=== PATIENT | female | born 1960 | race Caucasian/White ===

== ENCOUNTER 2023-04-17 16:16 | Outpatient (OUT) | payer OTHER, SELFPAY ==
--- NOTE | 2023-04-17 | MM_ITS ---
Patient Name: DELVIS VALDEZ MR#: [id number] : 1960 Exam Date: 04/17/2023 Ordering Doctor: DR Fili Crisostomo . RADIOLOGY REPORT PROCEDURE: MM TOMOSYNTHESIS SCREENING BI COMPARISON: MG MAMM SCREEN 3D FINN CAD, 04/03/2021. MG MAMM SCREEN 3D FINN CAD, 04/09/2022. INDICATIONS: Finn Screening Mammogram Calculator Name NCI Breast Cancer Risk Assessment Tool 5 Year Breast Cancer Risk 1.60% Lifetime Breast Cancer Risk 6.40% Personal Breast Cancer No Personal Ovarian Cancer No Treatments Hysterectomy Family Cancers Mother with lung cancer at age ~60. LOCATION: [facility] BREAST COMPOSITION: Heterogeneously dense,which may obscure small masses. FINDINGS: DIAGNOSTIC CATEGORY 2--BENIGN FINDING. NO CHANGE FROM COMPARISON. Scattered benign-appearing lymph nodes are present. RIGHT BREAST: No significant suspicious finding. LEFT BREAST: No significant suspicious finding. Stable micro clip marker upper outer quadrant, anterior breast RECOMMENDATIONS: ROUTINE MAMMOGRAM AND CLINICAL EVALUATION IN 12 MONTHS. PLEASE NOTE: A NORMAL MAMMOGRAM DOES NOT EXCLUDE THE POSSIBILITY OF BREAST CANCER. A CLINICALLY SUSPICIOUS PALPABLE LUMP SHOULD BE BIOPSIED. Dictated by: Fitz Astudillo MD on 04/18/2023 at 07:26 Approved by: Fitz Astudillo MD on 04/18/2023 at 07:27
== END 2023-04-17 16:17 | disposition home or self-care (01) ==
LOC: MAMMO 16:16
PROVIDERS: PCP Family Medicine; Visit Provider Obstetrics & Gynecology
DX: Z12.31 Encounter for screening mammogram for malignant neoplasm of breast (principal); Z80.1 Family history of malignant neoplasm of trachea, bronchus and lung
CPT/HCPCS: 77063; 77067

== ENCOUNTER 2023-04-23 21:59 | Outpatient (REF) | payer OTHER, SELFPAY ==
--- OUTSIDE RECORDS SUMMARY | 2023-04-23 22:03 | XMS_ITS | CCD ---
Author Name Unknown Address [address] [place] [address] Organization [facility] Care Team Providers Care Chief Nurse Name Role Phone RACHEAL, RUGEN M Unavailable Unavailable CHARLES, DENNY M Unavailable Unavailable RACHEAL, RUGEN M Unavailable Unavailable MARY CELESTE Unavailable Unavailable Eleva, Erica Shipley Unavailable Unavailable SUE, JOCY Admitting Unavailable SUE, JOCY Attending Unavailable RACHEAL, DR TATE Primary Care Unavailable WEST, DR ANABELLA Harmon Consulting Unavailable SEUJOCY Consulting Unavailable TIMMIS, DR KING Admitting Unavailable TIMMIS, DR KING Attending Unavailable RACHEAL, DR TATE Primary Care Unavailable TIMMIS, DR KING Consulting Unavailable TIMMIS, DR KING Admitting Unavailable TIMMIS, DR KING Attending Unavailable RACHEAL, DR TATE Primary Care Unavailable TIMMIS, DR KING Consulting Unavailable WEST, DR ANABELLA Harmon Consulting Unavailable KARASIK, DR DIOP Admitting Unavailable KARASIK, DR DIOP Attending Unavailable RACHEAL, DR TATE Primary Care Unavailable KARASIK, DR DIOP Consulting Unavailable ZIEBER, DR ISMAEL Lanier Consulting Unavailable KARASIK, DR DIOP Admitting Unavailable KARASIK, DR DIOP Attending Unavailable RACHEAL, DR TATE Primary Care Unavailable KARASIK, DR DIOP Consulting Unavailable SUE, JOCY M Attending Unavailable Allergies Allergy Classification Reported Allergen(s) Allergy Type Date of Onset Reaction(s) Facility (1 source) Adhesive bandage; Translations: [Adhesive Bandage] Propensity to adverse reactions (disorder) [facility] Repository (1 source) Latex; Translations: [Latex] Propensity to adverse reactions (disorder) [facility] Rep[facility] (1 source) No Known Medication Allergies; Translations: [No Known Medication Allergies] Propensity to adverse reactions to drug (disorder) [facility] Repository (1 source) Misc-Drug Drug allergy (disorder) [facility] Repository Problems Active Problems Problem Classification Problem Date Documented Da te Episodic/Chronic Other screening for suspected conditions (not mental disorders or infectious disease) (4 sources) Encounter for screening mammogram for malignant neoplasm of breast; Translations: [ENC SCR MAMMO MALIG NEOPLASM BREAST] Onset: 04-09-2022 Episodic Residual codes; unclassified (1 source) Family history of malignant neoplasm of trachea, bronchus and lung; Translations: [FAM HX MALIG NEOPLSM TRACH BRON LNG] Onset: 04-12-2022 Episodic Thyroid disorders (9 sources) Nontoxic single thyroid nodule; Translations: [Hypothyroidism, unspecified] Onset: 08-08-2021 Chronic Unclassified (1 source) Periorbital cellulitis; Translations: [Periorbital cellulitis] Onset: 11-24-2016 Past or Other Problems Problem Classification Problem Date Documented Da te Episodic/Chronic Other gastrointestinal disorders (4 sources) Dysphagia, unspecified; Translations: [DYSPHAGIA UNSPECIFIED] Onset: 08-04-2021 Episodic Other skin disorders (1 source) Localized swelling, mass and lump, neck; Translations: [LOCALIZED SWELLING MASS AND LUMP NECK] Onset: 08-08-2021 Episodic Results Test Name Value Interpretation Reference Range Facility MG MAMM SCREEN 3D FINN CADon 04-09-2022 MG MAMM SCREEN 3D FINN CAD Patient: DELVIS VALDEZ Exam Date: 04/09/2022 : 1960 Gender:F Ordering : DR JADON VELA . Admission #: [id number] Family : Order #: [id number] CLICK HERE TO VIEW EXAM RADIOLOGY REPORT PROCEDURE: MAMMOGRAM SCREENING 3D BILATERAL CAD COMPARISON: MG MAMM SCREEN FINN W CAD, 11/24/2018. MG MAMM FINN SCRN W CAD DIG, 02/28/2016. MAMMO POST BIOPSY UNILATERAL LEFT, 06/19/2012. MG MAMM SCREEN 3D FINN CAD, 04/03/2021. INDICATIONS: Screening mammography Calculator Name NCI Breast Cancer Risk Assessment Tool 5 Year Breast Cancer Risk 1.60% Lifetime Breast Cancer Risk 6.60% Personal Breast Cancer No Personal Ovarian Cancer No Treatments Hysterectomy Family Cancers Mother with lung cancer at age 60. LOCATION: [facility] BREAST COMPOSITION: Heterogeneously dense,which may obscure small masses. FINDINGS: DIAGNOSTIC CATEGORY 2--BENIGN FINDING: RIGHT BREAST: No significant suspicious finding. No significant change has occurred. LEFT BREAST: No significant suspicious finding. Scattered benign-appearing lymph nodes are present within upper-outer quadrant. Stable biopsy marker clip. No significant change has occurred. RECOMMENDATIONS: ROUTINE MAMMOGRAM AND CLINICAL EVALUATION IN 12 MONTHS. PLEASE NOTE: A NORMAL MAMMOGRAM DOES NOT EXCLUDE THE POSSIBILITY OF BREAST CANCER. A CLINICALLY SUSPICIOUS PALPABLE LUMP SHOULD BE BIOPSIED. Dictated by: Ismael Durbin M.D. on 04/11/2022 at 08:03 Approved by: Ismael Durbin M.D. on 04/11/2022 at 08:[address] [facility] US THYROIDon 04-04-2022 US THYROID EXAMINATION: US THYR OID HISTORY: Non-toxic uninodular goiter COMPARISON: 08/04/2021 TECHNIQUE: Sonographic images of the thyroid gland were obtained. FINDINGS: The right thyroid lobe is atrophic and heterogeneous measuring 3.7 x 0.6 x 0.8 cm. No focal nodules The thyroid isthmus is atrophic measuring 0.01 mm. No focal nodule The left thyroid lobe is atrophic and heterogeneous measuring 3.3 x 0.7 x 0.6 cm. 2 focal nodules the largest measuring 0.8 x 0.4 x 0.2 cm, solid, isoechoic, wide, smooth margins, no calcifications. TR 3 IMPRESSION: Stable 8 mm left thyroid TR 3 nodule. No follow-up required Diffuse thyroid atrophy TI-RADS: The [employer] TI-RADS committee's white paper recommendations for thyroid lesions classified as TR3 (mildly suspicious) are listed below: > 1.5 cm. Follow-up ultrasound in 1, 3, and 5 years. > 2.5 cm. FNA. J. Am Donte Radiol 2017;14:587-595. Electronically authenticated by: ANABELLA MATHIS Date: 2022-04-04 16:[address] [facility] TSHon 09-21-2021 TSH 1.478 uIU/mL Normal 0.358-3.740 [facility] Comment on above: Performed By: #### T #### [facility] [address] [address] [address] 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 TECHNIQUE: Sonographic images of the thyroid gland were obtained. FINDINGS: The right thyroid lobe is normal in contour and homogeneous echotexture measuring 3.7 x 0.5 x 0.9 cm. No nodules over 5 mm. Thyroid isthmus measures 1.4 mm, homogeneous, no nodule. The left thyroid lobe is normal in contour and homogeneous echotexture measuring 3.3 x 0.8 x 0.8 cm. Single nodule. Nodule 1: Inferior. 0.7 x 0.5 x 0.3 cm. Solid, isoechoic, wide, smooth margins, no consultations. TR 3 IMPRESSION: Single 7 mm left thyroid nodule TI-RADS: The [employer] TI-RADS committee's white paper recommendations for thyroid lesions classified as TR3 (mildly suspicious) are listed below: > 1.5 cm. Follow-up ultrasound in 1, 3, and 5 years. > 2.5 cm. FNA. J. Am Donte Radiol 2017;14:587-595. Electronically authenticated by: ANABELLA MATHIS Date: 2021-08-06 07:05 Normal [facility] ED Provider Noteon 7 HIM IP Note OR Divinity Professor Normal [facility] Otolaryngology Consultationo n 10-29-2016 Otolaryngology Consultation Chief Complaint My right side of my face is swollen.History of Present Illness Patient is a very pleasant 56-year-old woman who has had swelling of her uvula on and off for the last month. Today she additionally has some hoarseness and little bit of discomfort on the left side of her throat. There's been no associated fever and chills. She does have some mild to moderate dysphagia that occurs when the uvula swells. There has been no shortness of breath or stridor.Review of Systems General Adult ROS Fatigue: No Appetite change: No Weakness: No Weight gain: No Weight Loss: No Cardiovascular Chest pain/pressure: No Edema: No Syncope: No EENMT Ear pain: No Nasal congestion: Yes Nasal discharge: No Nosebleeds: Yes Gastrointestinal Abdominal pain: No Constipation: No Diarrhea: No Heartburn: Yes Nausea: No Genitourinary Frequency: Yes Hematologic/Lymphatic Bleeding tendencies: No Bruising: No Musculoskeletal Joint pain: No Joint swelling: No Muscle aches: No Neurological Focal weakness: No Headache: No Numbness: No Psychiatric Anxiety: No Depression: No Suicidal Ideation: No Respiratory Cough: No Shortness_of_breath: No Snoring: No Wheezing: No Skin Itching: No Nail changes: No Rash: NoPhysical Exam Vitals & Measurements BP: 131/90 WT: 65.8 kg General: [Alert and oriented, well nourished, no acute distress]. Eye: [PERRL, EOMI, normal conjunctiva]. HENT: [Normocephalic. Ears: Analysis clear TMs healthy. Nose adequate airway mild bowing rightis or purulence. Oral cavity oropharynx of the mucous membranes good dental repair, post tonsillectomy healing throat. Inferior portion of uvula with pallorous edema though not significantly swollen at this time. Larynx: gag precludes good exam. Neck: [Supple, non-tender, no carotid bruits, no JVD, no lymphadenopathy]. Lungs: [Clear to auscultation and percussion, non-labored respiration]. Heart: [Normal rate, regular rhythm, no murmur, gallop or edema]. Skin: [Skin is warm, dry and pink, no rashes or lesions]. Neurologic: [Awake, alert, and oriented X3, CN II-XII intact]. Psychiatric: [Cooperative, appropriate mood and affect]. Additional Vitals BP Position/Location: Sitting, Left arm Peripheral Pulse Rate: 92 bpmAssessment/Plan 1. Uvular swelling Ordered: 91884 AMB Laryngoscopy diagnostic 23744 AMB Office OP Visit [facility] 2. Dysphasia Ordered: 97614 AMB Laryngoscopy diagnostic 32916 AMB Office OP Visit [facility] 3. Chronic GERD 4. Hoarse voice quality Flexible laryngoscopy: Her nose was anesthetized with topical anesthesia and the scope subsequently passed through her left nostril into her nasopharynx. There is no Nasal disease and her nasopharynx is normal. The tongue base reveals mild lingual tonsillar change slightly greater so on the left. The epiglottis and supraglottic larynx are normal. She has moderate to significant amount of cobblestoning of the posterior oropharyngeal vines. Orders are mobile there is some minimal edema and the trachea is clear. Plan: Giving her a reflux handout and placed her on some omeprazole. I'm concerned that the edematous change of the uvula could be related to the DARLYN inhibitor she is taking. I asked her to speak with Dr. Springer about possibly stopping this for a period of time a month or so to see whether this swelling stops. The swelling itself is reminiscent of angioedema in a mild form. Do not feel the reflux disease as any bearing on her uvular swelling.Problem List/Past Medical History Ongoing Hypertension Historical No qualifying dataProcedure/Surgical History Appendectomy, Hysterectomy, septoplasty, shoulder.Medications Home lisinopril 20 mg oral tablet, 20 mg, 1 tabs, Oral, Daily predniSONE 1 mg oral delayed release tablet, 1 mg, 1 tabs, Oral, Daily Inpatient No active inpatient medications Prescriptions No active PrescriptionsAllergies Adhesive Bandage (Rash) Latex (Rash) No Known Medication AllergiesSocial History Alcohol Never Substance Abuse Denies All Tobacco Never smokerFamily History Cancer: Mother. Heart attack: Father. Heart disease: Mother.Lab Results No qualifying data available.Electronically signed by N Mary fry MD 10/29/16 13:51 EDT Normal [facility] Encounters Encounter Date Encounter Type Care Provider Facility Start: 03-19-2023 End: 03-19-2023 ambulatory JOCY ROGERS Not Available Start: 04-23-2022 End: 04-23-[address] JADON VELA Facility:[facility] Start: 04-09-2022 End: 04-10-[address] JADON VELA Facility:[facility] Start: 04-04-2022 End: 04-05-[address] FERNANDO GRAHAM Facility:[facility] Start: 09-21-2021 End: 09-22-[address] FERNANDO GRAHAM Facility:[facility] Start: 08-04-2021 End: 08-05-2021 ambulatory JOCY ROGERS Facility:[facility] Start: 11-24-2016 End: 11-24-2016 Emergency department patient visit ERICA SPRINGER [facility] Start: 10-29-2016 End: 10-30-2016 Ambulatory MARY CELESTE Facility:[facility] Payers Date Payer Category Payer Unknown [id number] 1961 Unknown [id number] 1960 Unknown [id number] 2.16.84 [id number] 1960 Unknown [id number] 2.16.84 [id number] 1960 Unknown [id number] 2.16.84 [id number] 1960 Unknown [id number] 2.16.84 [id number] 1960 Unknown [id number] 2.16.84 [id number] 1960 Unknown [id number] 04-07-1799 Unknown Summary Purpose Family History No Family History Records FoundNo Family History Records FoundNo Family History Records FoundNo Family History Records FoundNo Family History Records Found Advance Directives No Advanced Directives Records FoundNo Advanced Directives Records FoundNo Advanced Directives Records FoundNo Advanced Directives Records FoundNo Advanced Directives Records Found Additional Source Comments INFORMATION SOURCE (unrecogn ized section and content) DATE CREATED AUTHOR 10/01/2017 [facility] DATE CREATED AUTHOR AUTHOR'S ORGANIZ ATION 10/01/2017 [facility] DATE CREATED AUTHOR AUTHOR'S ORGANIZ ATION 08/09/2021 [facility] dical Specialist DATE CREATED AUTHOR AUTHOR'S ORGANIZ ATION 04/24/2022 [facility] DATE CREATED AUTHOR AUTHOR'S ORGANIZ ATION 03/21/2023 [facility] dical Specialists EPIC FOR RECORDS PERTAINING TO PATIENTS WHO ARE OR HAVE BEEN ENROLLED IN A CHEMICAL DEPENDENCY/SUBSTANCEABUSE PROGRAM, SOME INFORMATION MAY BE OMITTED. This clinical summary was aggregated from multiple sources. Caution should be exercised in using it in the provision of clinical care. This summary normalizes information from multiple sources, and as a consequence, information in this document may materially change the coding, format and clinical context of patient data. In addition, data may be omitted in some cases. CLINICAL DECISIONS SHOULD BE BASED ON THE PRIMARY CLINICAL RECORDS. [facility] [employer] [facility]. provides no warranty or guarantee of the accuracy or completeness of information in this document.
[2023-04-28 18:08] LABS: Age Gdln ACOG Testing Note (.); HPV Aptima Negative (Negative); IGP, Aptima HPV, rfx 16/18,45 Note (.)
== END 2023-04-23 22:00 | disposition home or self-care (01) ==
LOC: LAB 21:59
PROVIDERS: PCP Family Medicine; Visit Provider Obstetrics & Gynecology
DX: Z01.419 Encounter for gynecological examination (general) (routine) without abnormal findings (principal)
CPT/HCPCS: 87624; G0145

== ENCOUNTER 2023-05-22 15:33 | Outpatient (OUT) | payer OTHER, SELFPAY ==
--- NOTE | 2023-05-22 15:40 | XR_ITS ---
The [address] [address] Patient Name: DELVIS VALDEZ MRN: [id number] date: 1960 Sex: F Assigned Patient Location: [facility] Current Patient Location: [facility] Accession/Order Number: [id number] Exam Date: 05/22/2023 15:50 Report Date: 05/22/2023 16:09 At the request of: KEN PEARSON Procedure: XR DEXA axial skeleton EXAM: XR DEXA axial skeleton HISTORY: Postmenopausal; Z78.0. COMPARISON: None. TECHNIQUE: Routine DEXA scan lumbar spine and bilateral hips. FINDINGS: L1-L4: BMD 1.330 g/sq cm and T score 1.3. Left femoral neck: BMD 1.007 g/sq cm and T score -0.2. Left hip total: BMD 1.075 g/sq cm and T score 0.5. Right femoral neck: BMD 1.030 g/sq cm and T score -0.1. Right hip total: BMD 1.104 g/sq cm and T score 0.8. XR/XR DEXA axial skeleton IMPRESSION: Normal bone mineral density. Electronically authenticated by: ERVIN ROJAS Date: 05/22/2023 16:09
== END 2023-05-22 15:34 | disposition home or self-care (01) ==
LOC: RAD 15:33
PROVIDERS: PCP Family Medicine; Visit Provider Obstetrics & Gynecology
DX: Z78.0 Asymptomatic menopausal state (principal)
CPT/HCPCS: 77080

== ENCOUNTER 2023-05-22 15:34 | Outpatient (OUT) | payer OTHER, SELFPAY ==
--- NOTE | 2023-05-22 15:41 | US_ITS ---
[address] [address] Patient Name: DELVIS VALDEZ MRN: [id number] date: 1960 Sex: F Assigned Patient Location: US Current Patient Location: Accession/Order Number: [id number] Exam Date: 05/22/2023 16:00 Report Date: 05/23/2023 06:50 At the request of: JOCY ROGERS Procedure: US thyroid EXAMINATION: US thyroid HISTORY: thyroid nodule E04.1 COMPARISON: Ultrasound thyroid 04/04/2022 FINDINGS: RIGHT LOBE: Homogeneous echotexture and contains a 4 mm TR 3 nodule and a small colloid cyst. Lobe size: 5.1 x 0.7 x 0.6 cm LEFT LOBE: Homogeneous echotexture and contains a 6 mm TR 4 nodule within inferior pole, and 2 5 mm TR 3 nodules within mid body/inferior pole. Lobe size: 3.1 x 0.6 x 0.9 cm. ISTHMUS: Normal size and echotexture. Thickness: 1 mm US/US thyroid IMPRESSION: 1. A few small nodules scattered within the homogeneous thyroid gland; not overtly suspicious. Consider follow-up imaging in 2 years. TR4 (moderately suspicious): If > 1.0 cm, follow-up ultrasound in 1, 2, 3, and 5 years. If > 1.5 cm, fine needle aspiration (FNA). TR3 (mildly suspicious): > 1.5 cm, follow-up ultrasound in 1, 3, and 5 years. > 2.5 cm, fine needle aspiration. Electronically authenticated by: TIFFANY WILHELM Date: 05/23/2023 06:50
--- OUTSIDE RECORDS SUMMARY | 2023-05-22 15:47 | XMS_ITS | CCD ---
Author Name Unknown Address [address] [place] [address] Organization [facility] Care Team Providers Care Steam Presser Name Role Phone RACHEAL, RUGEN M Unavailable Unavailable DENNY SOTO M Unavailable Unavailable RACHEAL, RUGEN M Unavailable Unavailable MARY CELESTE Unavailable Unavailable Racheal, Erica Shipley Unavailable Unavailable SUEOJCY Admitting Unavailable JOCY ROGERS Attending Unavailable RACHEAL, DR TATE Primary Care Unavailable DEL, DR ANABELLA Harmon Consulting Unavailable SUEJOCY SOLOMON Consulting Unavailable TIMMIS, DR KING Admitting Unavailable [...] Care Unavailable KARASIK, DR DIOP Consulting Unavailable MICHEL, KEN Attending Unavailable SUE, JOCY M Attending Unavailable Allergies Allergy Classification Reported Allergen(s) Allergy Type Date of Onset Reaction(s) Facility (1 source) Adhesive bandage; Translations: [Adhesive Bandage] Propensity to adverse reactions (disorder) [facility] Repository (1 source) Latex; Translations: [Latex] Propensity to adverse reactions (disorder) [facility] Repository (1 source) No Known Medication Allergies; Translations: [No Known Medication Allergies] Propensity to adverse reactions to drug (disorder) [facility] Repository (1 source) Misc-Drug Drug allergy (disorder) [facility] Repository Problems Active Problems Problem Classification [...] : DR JADON VELA . Admission #: [id number] Family : Order #: [id number] CLICK HERE TO VIEW EXAM RADIOLOGY REPORT [...] lung cancer at age 58. LOCATION: [facility] BREAST COMPOSITION: Heterogeneously dense,which may obscure [...] M.D. on 04/11/2022 at 08:[address] [facility] US THYROIDon 04-04-2022 US THYROID EXAMINATION: [...] follow-up required Diffuse thyroid atrophy TI-RADS: The [employer] TI-RADS committee's white paper recommendations for thyroid lesions classified as TR3 (mildly suspicious) are listed below: > 1.5 cm. Follow-up ultrasound in 1, 3, and 5 years. > 2.5 cm. FNA. J. Am Donte Radiol 2017;14:587-595. Electronically authenticated by: ANABELLA MATHIS Date: 2022-04-04 16:[address] [facility] TSHon 09-21-2021 TSH 1.478 uIU/mL Normal 0.358-3.740 [facility] Comment on above: Performed By: #### T #### [facility] [address] [place] [address] Dr. Kiara Miles TSHon 08-08-2021 TSH 5.390 uIU/mL High 0.400-4.500 [facility] io [employer] Comment on above: Performed By: #### T #### [facility] [address] [place] [id number] US THYROIDon 08-06-2021 US THYROID EXAMINATION: US [...] 7 mm left thyroid nodule TI-RADS: The [employer] TI-RADS committee's white paper recommendations for thyroid lesions classified as TR3 (mildly suspicious) are listed below: > 1.5 cm. Follow-up ultrasound in 1, 3, and 5 years. > 2.5 cm. FNA. J. Am Donte Radiol 2017;14:587-595. 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 Uvular swelling Ordered: 23778 AMB Laryngoscopy diagnostic 07291 AMB Office OP Visit [facility] 2. Dysphasia Ordered: 15939 AMB Laryngoscopy diagnostic 88869 AMB Office OP Visit [facility] 3. Chronic GERD 4. Hoarse [...] No qualifying data available.Electronically signed by N lisandra TOLBERT, Mary Perez 10/29/16 13:51 EDT [facility] Encounters Encounter Date Encounter Type Care Provider Facility Start: 04-23-2023 End: 04-23-2023 ambulatory KEN PEARSON Not Available Start: 03-19-2023 End: 03-19-2023 ambulatory JOCY ROGERS Not Available Start: 04-23-2022 End: 04-23-[address] JADON VELA Facility:[facility] Start: 04-09-2022 End: 04-10-[address] JADON VELA Facility:[facility] Start: 04-04-2022 End: 04-05-[address] FERNANDO GRAHAM Facility:[facility] Start: 09-21-2021 End: 09-22-[address] FERNANDO GRAHAM Facility:[facility] Start: 08-04-2021 End: 08-05-2021 ambulatory JOCY ROGERS Facility:[facility] Start: 11-24-2016 End: 11-24-2016 Emergency department patient visit ERICA SPRINGER [facility] Start: 10-29-2016 End: 10-30-2016 Ambulatory MARY CELESTE Facility:[facility] Payers Date Payer Category Payer Unknown [id number] 1961 Unknown [id number] 1960 Unknown [id number] 2.16.84 [id number] 1960 Unknown [id number] 2.16.84 [id number] 1960 Unknown [id number] 2.16.84 [id number] 1960 Unknown [id number] 2.16.84 [id number] 1960 Unknown [id number] 2.16.84 [id number] 1960 Unknown [id number] 2.16.84 [id number] 1960 Unknown [id number] 04-07-1799 Unknown Summary Purpose Family History No [...] section and content) DATE CREATED AUTHOR 10/01/2017 [facility] DATE CREATED AUTHOR AUTHOR'S ORGANIZ ATION 10/01/2017 [facility] DATE CREATED AUTHOR AUTHOR'S ORGANIZ ATION 08/09/2021 [facility] dical Specialist DATE CREATED AUTHOR AUTHOR'S ORGANIZ ATION 04/24/2022 [facility] DATE CREATED AUTHOR AUTHOR'S ORGANIZ ATION 04/24/2023 [facility] dical Specialists [facility] FOR RECORDS PERTAINING TO PATIENTS WHO ARE [...] BE BASED ON THE PRIMARY CLINICAL RECORDS. [facility] [employer] provides no warranty or guarantee of the accuracy or completeness of information in this document.
== END 2023-05-22 15:35 | disposition home or self-care (01) ==
LOC: US 15:34
PROVIDERS: PCP Family Medicine; Visit Provider Nurse Practitioner Family
DX: E04.1 Nontoxic single thyroid nodule (principal); N95.1 Menopausal and female climacteric states; Z13.820 Encounter for screening for osteoporosis; E89.41 Symptomatic postprocedural ovarian failure
CPT/HCPCS: 76536; 77080

== ENCOUNTER 2024-02-24 08:08 | Observation (INO) | payer OTHER, SELFPAY ==
[2024-02-24] VITALS (32 sets, daily range): BP systolic 122–187; BP diastolic 75–98; PULSE 69–91; TEMP 36.3–36.7; O2SAT 95–98; BMI 24.2; BMI 23.7
--- NOTE | 2024-02-24 08:16 | CT_ITS ---
The [address] [address] Patient Name: DELVIS VALDEZ MRN: [id number] date: 1960 Sex: F Assigned Patient Location: ED.MAIN Current Patient Location: ER Accession/Order Number: [id number] Exam Date: 02/24/2024 08:22 Report Date: 02/24/2024 08:35 At the request of: JOSEPHNIE FOWLER Procedure: CT stroke head/brain wo con NONCONTRAST HEAD CT COMPARISON: None. CLINICAL HISTORY: [Numbness. TECHNIQUE: Routine noncontrast images of the brain obtained. CT examination of the head without IV contrast. Dose reduction techniques were achieved by using: automated exposure control and/or adjustment of mA and /or kV according to patient size and/or use of iterative reconstruction technique. FINDINGS: Paranasal sinuses and mastoid air cells are clear. Intraorbital contents are unremarkable. No acute bony abnormality. Intracranially, there is no evidence of hemorrhage, mass effect, or midline shift. Ventricles and cisternal spaces are age appropriate. CT/CT stroke head/brain wo con IMPRESSION: No acute intracranial abnormality. Electronically authenticated by: SANDIP GARRETT Date: 02/24/2024 08:35
--- NOTE | 2024-02-24 08:24 | PC.NURSE ---
pt to CT via wheelchair at this time.
--- OUTSIDE RECORDS SUMMARY | 2024-02-24 08:29 | XMS_ITS | CCD ---
Author Organization [facility] Care Team Providers Care Radio Board Operator Name Role Phone RACHEAL, RUGEN M Unavailable Unavailable CHARLES, DENNY M Unavailable Unavailable RACHEAL, RUGEN M Unavailable Unavailable MARY CELESTE Unavailable Unavailable [place], Erica Shipley Unavailable Unavailable SUE, JOCY Admitting Unavailable SUE, JOCY Attending Unavailable RACHEAL, DR TATE Primary Care Unavailable WEST, DR ANABELLA Harmon Consulting Unavailable SUEJOCY Consulting Unavailable TIMMIS, DR KING Admitting Unavailable [...] DIOP Consulting Unavailable MICHEL, KEN Attending Unavailable TIMMIS, FERNANDO H Attending Unavailable RACHEAL, RUGEN M Referring Unavailable SUE, JOCY M Attending Unavailable SUE, JOCY M Attending Unavailable Allergies Allergy Classification Reported Allergen(s) Allergy Type Date of Onset Reaction(s) Facility (1 source) Adhesive bandage; Translations: [Adhesive Bandage] Propensity to adverse reactions (disorder) [facility] Repository (1 source) Latex; Translations: [Latex] Propensity to adverse reactions (disorder) [facility] Repository (1 source) No Known Medication Allergies; Translations: [No Known Medication Allergies] Propensity to adverse reactions to drug (disorder) [facility] Repository (1 source) Misc-Drug Drug allergy (disorder) [facility] Repository Problems Active Problems Problem Classification Problem [...] : DR JADON VELA . Admission #: [id number] Family : Order #: [id number] CLICK HERE TO VIEW EXAM RADIOLOGY REPORT [...] lung cancer at age 58. LOCATION: [facility] BREAST COMPOSITION: Heterogeneously dense,which may obscure small [...] M.D. on 04/11/2022 at 08:08 Normal [facility] US THYROIDon 04-04-2022 US THYROID EXAMINATION: US [...] follow-up required Diffuse thyroid atrophy TI-RADS: The [employer] TI-RADS committee's white paper recommendations for thyroid lesions classified as TR3 (mildly suspicious) are listed below: > 1.5 cm. Follow-up ultrasound in 1, 3, and 5 years. > 2.5 cm. FNA. J. Am Donte Radiol 2017;14:587-595. Electronically authenticated by: ANABELLA MATHIS Date: 2022-04-04 16:[address] [facility] TSHon 09-21-2021 TSH 1.478 uIU/mL Normal 0.358-3.740 [facility] Comment on above: Performed By: #### T #### [facility] [address] [place] [address] Dr. Kiara Miles TSHon 08-08-2021 TSH 5.390 uIU/mL High 0.400-4.500 [facility] io Laminating Machine Feeder Comment on above: Performed By: #### T #### [facility] [address] [facility] [address] [place], [place] [id number] US THYROIDon 08-06-2021 US THYROID EXAMINATION: US [...] 7 mm left thyroid nodule TI-RADS: The [employer] TI-RADS committee's white paper recommendations for thyroid lesions classified as TR3 (mildly suspicious) are listed below: > 1.5 cm. Follow-up ultrasound in 1, 3, and 5 years. > 2.5 cm. FNA. J. Am Donte Radiol 2017;14:587-595. Electronically authenticated by: ANABELLA MATHIS Date: 2021-08-06 07:[address] [facility] ED Provider Noteon 7 HIM IP Note OR Imitation [employer] Normal [facility] Otolaryngology Consultationo n 10-29-2016 Otolaryngology Consultation Chief [...] Rate: 92 bpmAssessment/Plan 1. Uvular swelling Ordered: 98419 AMB Laryngoscopy diagnostic 74867 AMB Office OP Visit [facility] Clinic 2. Dysphasia Ordered: 46042 AMB Laryngoscopy diagnostic 22025 AMB Office OP Visit [facility] Clinic 3. Chronic GERD 4. Hoarse [...] data available.Electronically signed by N lisandra TOLBERT, aMry Perez 10/29/16 13:51 EDT Normal [facility] Encounters Encounter Date Encounter Type Care Provider Facility Start: 12-18-2023 End: 12-18-2023 ambulatory JOCY ROGERS Not Available Start: 06-04-2023 End: 06-04-2023 ambulatory FERNANDO GRAHAM Not Available Start: 04-23-2023 End: 04-23-2023 ambulatory KEN PEARSON Not Available Start: 03-19-2023 End: 03-19-2023 ambulatory JOCY ROGERS Not Available Start: 04-23-2022 End: 04-23-[address] JADON VELA Facility:[facility] Start: 04-09-2022 End: 04-10-[address] JADON VELA Facility:[facility] Start: 04-04-2022 End: 04-05-[address] FERNANDO GRAHAM Facility:[facility] Start: 09-21-2021 End: 09-22-[address] FERNANDO GRAHAM Facility:[facility] Start: 08-04-2021 End: 08-05-2021 ambulatory JOCY SUE Facility:[facility] Start: 11-24-2016 End: 11-24-2016 Emergency department patient visit ERICA SPRINGER [facility] Start: 10-29-2016 End: 10-30-2016 Ambulatory MARY CELESTE Facility:[facility] Payers Date Payer Category Payer Unknown [id number] 1961 Unknown [id number] 1960 Unknown [id number] 2.16.84 [id number] 1960 Unknown [id number] 2.16.84 [id number] 1960 Unknown [id number] 2.16.84 [id number] 1960 Unknown [id number] 2.16.84 [id number] 1960 Unknown [id number] 2.16.84 [id number] 1960 Unknown [id number] 2.16.84 [id number] 1960 Unknown [id number] 2.16.84 [id number] 1960 Unknown [id number] 2.16.84 [id number] 1960 Unknown [id number] 2.16.840 .[id number] 04-07-1799 Unknown Summary Purpose Family History No [...] section and content) DATE CREATED AUTHOR 10/01/2017 [facility] DATE CREATED AUTHOR AUTHOR'S ORGANIZ ATION 10/01/2017 [facility] DATE CREATED AUTHOR AUTHOR'S ORGANIZ ATION 08/09/2021 [facility] DATE CREATED AUTHOR AUTHOR'S ORGANIZ ATION 04/24/2022 [facility] DATE CREATED AUTHOR AUTHOR'S ORGANIZ ATION 12/21/2023 [facility] FOR RECORDS PERTAINING TO PATIENTS WHO ARE [...] BE BASED ON THE PRIMARY CLINICAL RECORDS. [facility] [employer] provides no warranty or guarantee of the accuracy or completeness of information in this document.
--- NOTE | 2024-02-24 08:35 | ECG_ITS ---
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
--- NOTE | 2024-02-24 08:44 | CT_ITS ---
The [address] [address] Patient Name: DELVIS VALDEZ MRN: [id number] date: 1960 Sex: F Assigned Patient Location: ER Current Patient Location: .[facility] Accession/Order Number: [id number] Exam Date: 02/24/2024 09:14 Report Date: 02/24/2024 10:16 At the request of: JOSEPHINE FOWLER Procedure: CT angio neck EXAM: CT angio neck, CT angio head HISTORY: facial numbness COMPARISON: CT head 02/24/2024. TECHNIQUE: Axial noncontrast CT imaging of the head was performed. Subsequent postcontrast CTA imaging of the head and neck was performed with coronal and sagittal reformats. Maximum intensity projection and 3-D reformats were performed on a separate workstation. NASCET criteria was utilized. This CT exam was performed using one or more of the following dose reduction techniques: Automated exposure control, adjustment of the MA and/or kV according to patient size, or use of iterative reconstruction technique. FINDINGS: Aortic arch: Imaged portion shows no evidence of aneurysm. No significant stenosis of the major origins of the major arch vessels. Right carotid system: No evidence of significant (50% or greater) stenosis or occlusion. Left carotid system: No evidence of significant (50% or greater) stenosis or occlusion. Vertebral arteries: Codominant. No evidence of significant (50% or greater) stenosis or occlusion. Anterior circulation: No evidence of aneurysm, significant stenosis, or occlusion. Hypoplastic right A1 anterior cerebral artery segment. Vertebrobasilar system: No evidence of aneurysm, significant stenosis, or occlusion. Venous sinuses: Grossly patent. Additional findings: Visualized portion of lungs are clear. CT/CT angio neck IMPRESSION: No significant stenosis, large vessel occlusion or aneurysm involving the neck or intracranial arterial vasculature. Electronically authenticated by: ZEHRA RICE Date: 02/24/2024 10:16
--- NOTE | 2024-02-24 08:44 | CT_ITS ---
The [address] [address] Patient Name: DELVIS VALDEZ MRN: [id number] date: 1960 Sex: F Assigned Patient Location: ER Current Patient Location: .[facility] Accession/Order Number: [id number] Exam Date: 02/24/2024 09:14 Report Date: 02/24/2024 10:16 At the request of: JOSEPHINE FOWLER Procedure: CT angio head EXAM: CT angio neck, CT angio head HISTORY: facial numbness COMPARISON: CT head 02/24/2024. TECHNIQUE: Axial noncontrast CT imaging of the head was performed. Subsequent postcontrast CTA imaging of the head and neck was performed with coronal and sagittal reformats. Maximum intensity projection and 3-D reformats were performed on a separate workstation. NASCET criteria was utilized. This CT exam was performed using one or more of the following dose reduction techniques: Automated exposure control, adjustment of the MA and/or kV according to patient size, or use of iterative reconstruction technique. FINDINGS: Aortic arch: Imaged portion shows no evidence of aneurysm. No significant stenosis of the major origins of the major arch vessels. Right carotid system: No evidence of significant (50% or greater) stenosis or occlusion. Left carotid system: No evidence of significant (50% or greater) stenosis or occlusion. Vertebral arteries: Codominant. No evidence of significant (50% or greater) stenosis or occlusion. Anterior circulation: No evidence of aneurysm, significant stenosis, or occlusion. Hypoplastic right A1 anterior cerebral artery segment. Vertebrobasilar system: No evidence of aneurysm, significant stenosis, or occlusion. Venous sinuses: Grossly patent. Additional findings: Visualized portion of lungs are clear. CT/CT angio head IMPRESSION: No significant stenosis, large vessel occlusion or aneurysm involving the neck or intracranial arterial vasculature. Electronically authenticated by: ZEHRA RICE Date: 02/24/2024 10:16
[2024-02-24 08:48] LABS: Basophils Percent Auto 0.6 % (0.2-2.0); Eosinophils Absolute Auto 0.1 10^3/uL (0.0-0.7); Eosinophils Percent Auto 1.5 % (0.9-7.0); Hematocrit 40.4 % (36.0-48.0); Hemoglobin 13.3 g/dL (12.0-16.0); Immature Granulocytes Abs Auto 0.01 10^3/uL (0.00-0.03); Immature Granulocytes Pct Auto 0.2 % (0.0-0.5); Lymphocytes Absolute Auto 1.6 10^3/uL (1.2-3.8); Lymphocytes Percent Auto 24.5 % (20.5-60.0); Mean Corpuscular HGB Conc 32.9 g/dL (29.9-35.2); Mean Corpuscular Hemoglobin 28.6 pg (26.7-34.0); Mean Corpuscular Volume 86.9 fL (81.0-99.0); Mean Platelet Volume 9.1 fL (9.5-13.5); Monocytes Absolute Auto 0.4 10^3/uL (0.3-0.8); Monocytes Percent Auto 6.2 % (1.7-12.0); Neutrophils Absolute Auto 4.4 10^3/uL (1.4-6.5); Platelet Count 223 10^3/uL (150-450); Red Blood Count 4.65 10^6/uL (4.20-5.40); White Blood Count 6.6 10^3/uL (4.0-11.0)
[2024-02-24 08:58] LABS: Anion Gap 14.6; BUN Creatinine Ratio 12.5; Calcium 9.1 mg/dL (8.5-10.1); Carbon Dioxide 27.4 mmol/L (21.0-32.0); Chloride 103 mmol/L (98-107); Estimated GFR (African America >60 (>=60 mL/min/1.73m^2); Estimated GFR (Non-African Ame >60 (>=60 mL/min/1.73m^2); Glucose 95 mg/dL (74-106); Sodium 141 mmol/L (136-145)
[2024-02-24 09:06] LABS: Partial Thromboplastin Time 27.1 sec (22.3-36.2); Prothrombin Time 9.8 sec (9.0-11.6)
[2024-02-24 09:11] LABS: INR <0.93
--- NOTE | 2024-02-24 09:17 | PC.NURSE ---
pt to CT via wheelchair at approx 0913. pt remains A&Ox4 with no neuro deficits noted. pt moving all extremities equally and denies worsening of L upper lip numbness. no slurred speech or drooling noted.
--- NOTE | 2024-02-24 09:47 | ED_ITS ---
HPI - Neuro Symptoms/Deficit General Chief Complaint: Neuro Symptoms/Deficit Stated Complaint: FACIAL NUMBNESS Time Seen by Provider: 02/24/24 08:16 Source: patient Mode of arrival: walk-in History of Present Illness HPI Narrative: 63-year-old female presents to the emergency department for numbness to her left upper lip area. It began about 645 this morning and has been continuous. She has no other symptoms. No weakness or numbness in the arms or legs and no numbness to her forehead or jaw area. She has never had a stroke before. Related Data Home Medications ?Medication ?Instructions ?Recorded ?Confirmed conjugated estrogens 0.9 mg tablet mg 02/24/24 (Premarin) levothyroxine 25 mcg tablet mcg 02/24/24 lisinopril 10 mg tablet mg 02/24/24 semaglutide (weight loss) 0.25 0.25 mg subcut QWEEK 02/24/24 02/24/24 mg/0.5 mL subcutaneous pen injector Allergies Allergy/AdvReac Type Severity Reaction Status Date / Time cephalexin Allergy Mild Rash Verified 02/24/24 08:21 Sulfa (Sulfonamide Allergy Mild Rash Verified 02/24/24 08:21 Antibiotics) adhesive AdvReac Mild Rash Verified 02/24/24 08:21 Review of Systems ROS Narrative A ten point review of systems is negative except as noted above. PFSH PFSH Social History Little interest or pleasure in doing things: not at all Feeling down, depressed, or hopeless: not at all Exam Narrative Exam Narrative: Nurses note and vital signs reviewed and patient is not hypoxic. General: The patient appears well and in no apparent distress. Patient is resting comfortably on cart. Skin: Warm, dry, no pallor noted. There is no rash noted. Head: Normocephalic, atraumatic Eye: Normal conjunctiva, no drainage Ears, Nose, Mouth, and Throat: oral mucosa is moist. Nares patent. No erythema or swelling to her face is noted Cardiovascular: Regular Rate and Rhythm Respiratory: Patient is in no distress, no accessory muscle use, lungs are clear to auscultation, no wheezing, rales or rhonchi Back: non-tender GI: Nontender Musculoskeletal: The patient has no evidence of calf tenderness, no pitting edema, symmetrical pulses noted bilaterally Neurological: A&O x4, normal speech; upper and lower extremity strength 5 out of 5 and symmetric. She has subjective numbness in the left upper lip region, none along the jaw area or the face. Otherwise cranial nerves II through XII are intact. Psychiatric: Cooperative Constitutional Vital Signs, click to edit/add: Last Vital Signs Temp 98.0 F 02/24/24 08:12 Pulse 76 02/24/24 09:50 Resp 19 02/24/24 09:50 BP 176/84 H 02/24/24 09:30 Pulse Ox 97 02/24/24 09:50 O2 Del Method Room Air 02/24/24 08:12 Course Vital Signs Vital signs: Vital Signs Temperature 98.0 F 02/24/24 08:12 Pulse Rate 89 02/24/24 08:12 Respiratory Rate 16 02/24/24 08:12 Blood Pressure 164/96 H 02/24/24 08:12 Pulse Oximetry 98 02/24/24 08:12 Oxygen Delivery Method Room Air 02/24/24 08:12 Temperature 98.0 F 02/24/24 08:12 Pulse Rate 76 02/24/24 09:50 Respiratory Rate 19 02/24/24 09:50 Blood Pressure 176/84 H 02/24/24 09:30 Pulse Oximetry 97 02/24/24 09:50 Oxygen Delivery Method Room Air 02/24/24 08:12 MDM - Neuro Symptoms/Deficit MDM Narrative Medical decision making narrative: CT, CTA of head and neck are negative. Case discussed with Dr. Gross who recommends MRI as either an inpatient or an outpatient. The patient and her fam sejal preferred to be admitted for this testing and this is going to be accomplished. I have spoken to Dr. Rouse and the patient is admitted. Differential Diagnosis Differential diagnosis: Likely other (Paresthesia, CVA, hemorrhagic stroke) Lab Data Attestation: I reviewed the patient's lab results. Labs: Lab Results 02/24/24 Range/Units 08:42 WBC 6.6 (4.0-11.0) 10^3/uL RBC 4.65 (4.20-5.40) 10^6/uL Hgb 13.3 (12.0-16.0) g/dL Hct 40.4 (36.0-48.0) % MCV 86.9 (81.0-99.0) fL MCH 28.6 (26.7-34.0) pg MCHC 32.9 (29.9-35.2) g/dL RDW 13.0 (11.0-15.0) % Plt Count 223 (150-450) 10^3/uL MPV 9.1 L (9.5-13.5) fL Neut % (Auto) 67.0 (43.0-75.0) % Lymph % (Auto) 24.5 (20.5-60.0) % [place] % (Auto) 6.2 (1.7-12.0) % Eos % (Auto) 1.5 (0.9-7.0) % Baso % (Auto) 0.6 (0.2-2.0) % Neut # (Auto) 4.4 (1.4-6.5) 10^3/uL Lymph # (Auto) 1.6 (1.2-3.8) 10^3/uL [place] # (Auto) 0.4 (0.3-0.8) 10^3/uL Eos # (Auto) 0.1 (0.0-0.7) 10^3/uL Baso # (Auto) 0.0 (0.0-0.1) 10^3/uL Abs Immat Gran (auto) 0.01 (0.00-0.03) 10^3/uL Imm/Tot Granulo (auto) 0.2 (0.0-0.5) % PT 9.8 (9.0-11.6) sec INR <0.93 APTT 27.1 (22.3-36.2) sec Sodium 141 (136-145) mmol/L Potassium 4.0 (3.5-5.1) mmol/L Chloride 103 (98-107) mmol/L Carbon Dioxide 27.4 (21.0-32.0) mmol/L Anion Gap 14.6 BUN 9.0 (7.0-18.0) mg/dL Creatinine 0.72 (0.55-1.02) mg/dL Est GFR ( Amer) >60 (>=60 mL/min/1.73m^2) Est GFR (Non-Af Amer) >60 (>=60 mL/min/1.73m^2) BUN/Creatinine Ratio 12.5 Glucose 95 (74-106) mg/dL Calcium 9.1 (8.5-10.1) mg/dL Imaging Data CT scan - head: Radiologist's impression: ITS Impressions Brain CT 02/24/24 08:16 IMPRESSION: No acute intracranial abnormality. Electronically authenticated by: SANDIP GARRETT Date: 02/24/2024 08:35 Head CTA 02/24/24 08:44 IMPRESSION: No significant stenosis, large vessel occlusion or aneurysm involving the neck or intracranial arterial vasculature. Electronically authenticated by: ZEHRA RICE Date: 02/24/2024 10:16 Neck CTA 02/24/24 08:44 IMPRESSION: No significant stenosis, large vessel occlusion or aneurysm involving the neck or intracranial arterial vasculature. Electronically authenticated by: ZEHRA RICE Date: 02/24/2024 10:16 ECG Data Attestation: I personally reviewed and interpreted this ECG as follows: (EKG on my interpretation shows normal sinus rhythm with rate of 77) Discharge Plan Discharge Chief Complaint: Neuro Symptoms/Deficit Clinical Impression: Facial numbness Patient Disposition: Admitted as Observation Time of Disposition Decision: 10:50 Condition: Good Prescriptions / Home Meds: No Action levothyroxine 25 mcg tablet Premarin 0.9 mg tablet lisinopril 10 mg tablet semaglutide (weight loss) 0.25 mg/0.5 mL pen injector 0.25 mg subcut QWEEK Print Language: Kiswahili Referrals: LEA SPRINGER [Primary Care Provider] - 1 week
--- NOTE | 2024-02-24 10:43 | CA_ITS ---
Patient Name: DELVIS VALDEZ MR#: [id number] : 1960 Exam Date: 02/24/2024 Ordering Doctor: Jacey Rouse . ECHOCARDIOGRAM REPORT PROCEDURE: CA ECHO DOPPLER COMPLETE INDICATIONS: lip numbness/weakness/cva COMPARISON: None. DESCRIPTION: COMPLETE ECHOCARDIOGRAM Real-time transthoracic echocardiography with 2D, M-mode, spectral and color flow Doppler performed. QUALITY: Technical quality was good. LEFT VENTRICLE: Normal chamber size. Proximal septal hypertrophy (sigmoid septum). LV EF: Normal left ventricular ejection fraction, (>55%). DIASTOLIC: Normal diastolic function. ATRIAL SEPTUM: LEFT ATRIUM: Normal chamber size. RIGHT ATRIUM: Normal chamber size. RIGHT VENTRICLE: Normal chamber size. Normal right ventricular systolic function. TRICUSPID VALVE: Normal mobility and thickness. No stenosis with trivial regurgitation. No evidence of pulmonary hypertension. RVSP 18 mmHg MITRAL VALVE: Normal mobility and thickness. No evidence of mitral valve stenosis. There is no mitral annular calcification. No mitral regurgitation. AORTIC VALVE: Normal trileaflet appearance. No visible sclerosis. Normal leaflet mobility. No evidence of aortic valve stenosis. Mild aortic regurgitation. AORTIC ROOT: Normal diameter and appearance. Ascending aorta is normal in size. PULMONIC VALVE: Normal thickness and mobility. No stenosis. No regurgitation. PERICARDIUM: No evidence of pericardial effusion. IVC: Collapses with inspirations. PLEURA: CONCLUSION: 1. Normal ventricular systolic function. LVEF is estimated at 55 to 60%. 2. Normal diastolic function. 3. Mild aortic valve regurgitation. 4. Normal right-sided pressures. 5. No pericardial effusion. Adult Echocardiography Procedure Report Left Ventricle LVEDD (3.7 - 5.6 cm): 3.76 cm LVESD (2.2 - 4.0 cm): 2.62 cm LVIVS thickness (0.6 - 1.2 cm): 1.35 cm LVPW thickness (0.5 - 1.0 cm): 1.01 cm e': 0.08 m/s E - e': 6.02 LVOT Max Gradient: 2.17 mm[Hg] LVOT Area (cm2): 0.74 m/s Peak Velocity (LVOT): 0.74 m/s Mean Velocity (LVOT): 0.49 m/s LVOT Diameter 2.31 cm Left Atrium LA Volume Index (2D A2C): 28.74 ml/m2 Left Atrium Systolic Dimension: 3.48 cm Mitral Valve MV E to A Ratio: 0.72 Mitral Valve A-Wave Peak Velocity: 0.69 m/s Mitral Valve E-Wave Peak Velocity: 0.49 m/s Right Ventricle Aorta AO Root Diam: 3.09 cm Ascending Ao Diam: 2.71 cm Aortic Valve AoV Area (Peak Morales): 3.30 cm2, 3.30 cm2 AoV Area (VTI): 3.06 cm2, 3.06 cm2 Peak Velocity(Antegrade Flow): 0.93 m/s Peak Gradient(Antegrade Flow): 3.49 mm[Hg] Mean Velocity(Antegrade Flow): 0.64 m/s Mean Gradient(Antegrade Flow): 1.89 mm[Hg] Velocity Time Integral: 21.11 cm Tricuspid Valve Peak Velocity (Regurgitant Flow): 1.96 m/s Pulmonic Valve Peak Velocity: 0.67 m/s Peak Gradient: 1.78 mm[Hg] Right Atrium Right Atrium Systolic Pressure: 37.33 ml, 37.33 ml Dictated by: Jevon Rangel M.D. on 02/24/2024 at 19:31 Approved by: Jevon Rangel M.D. on 02/24/2024 at 19:34
--- NOTE | 2024-02-24 10:48 | P.HP_ITS ---
HPI H&P: HPI History of Present Illness Chief complaint: FACIAL NUMBNESS Narrative: Patient is a 63 y.o female with past medical history of Hypertension, hypothyroidism, and post menopausal symptoms, who presented to the ER today after waking up this morning at 6:45am with numbness of the left upper lip. She notes some dry skin and occasionally get some dry patches of which she uses lotion for. She denies any numbness or tingling of the lower extremities or upper extremities, she denies any recent illnesses. She denies headache or confusion. She denies slurring of speech. She has never had a stroke or CVA before. She has been elevated blood pressure, and her PCP placed her on kait aglutide to see if weight loss would help improve this. 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 She denies trauma, or fever or chills. On admission exam she says she is seeing double, lasts for a few seconds and goes away. This just started after MRI and after she received ATivan. ER findings: CTA of the head and neck showed no acute findings or evidence of stenosis, I was able to get MRI which was also negative for acute stroke. CBC, CMP and magnesium all normal. BP has been 145/80's. Patient was admitted for further work up of her acute lip numbness. Opioid HPI Opioid Management Most Recent Pain and Opioid Data: Last Pain Scale 6 02/24/24 08:45 02/24/24 Last Pain Assessment 02/24/24 14:00 Last ED Pain Assessment 02/24/24 08:45 Last ORT Total Score 5 02/24/24 13:06 02/24/24 Last ORT Risk Category Moderate Risk 02/24/24 13:06 02/24/24 Review of Systems ROS Narrative ROS: a complete review of systems were reviewed with patient and are positive as below or listed in History of Chief Complaint. General: no fever, chills, night sweats Head: no headache, trauma, visual changes, nausea or vomiting Skin: itching and dry spots/sores Eyes: no blurriness of vision Ears: no reported hearing loss, vertigo, earache, or tinnitus Throat: no sore throat, hoarseness, swelling of neck, or tongue pain Heart: no chest pain Lungs: no shortness of breath or cough GI: no diarrhea or vomiting/nausea Urinary: no urinary urgency, frequency or pain Neuro: numbness or tingling of the left upper lip HEM: no bleeding issues or bruising ENDO: thyroid problems Psych: no anxiety or depression PFSH PFSH Medical History (Updated 02/24/24 @ 15:37 by Jacey Rouse DO) Post menopausal syndrome ?N95.1 - Menopausal and female climacteric states (ICD-10) Hypothyroidism, acquired ?E03.9 - Hypothyroidism, unspecified (ICD-10) Lipoma of back ?D17.1 - Benign lipomatous neoplasm of skin and subcutaneous tissue of trunk (ICD-10) HTN (hypertension) ?I10 - Essential (primary) hypertension (ICD-10) FH: [place] (myocardial infarction) ?Z82.49 - Family history of ischemic heart disease and other diseases of the circulatory system (ICD-10) FH: stroke ?Z82.3 - Family history of stroke (ICD-10) Uterine cancer ?C55 - Malignant neoplasm of uterus, part unspecified (ICD-10) Surgical History History of appendectomy ?Z90.49 - Acquired absence of other specified parts of digestive tract (ICD- 10) H/O hysterectomy with oophorectomy Social History Highest level of school completed/degree received: Associate degree: academic program Little interest or pleasure in doing things: not at all Feeling down, depressed, or hopeless: not at all Meds Home Medications and Allergies Home Medications ?Medication ?Instructions ?Recorded ?Confirmed ?Type conjugated estrogens 0.9 mg tablet 0.9 mg PO .QD 02/24/24 02/24/24 History (Premarin) levothyroxine 25 mcg tablet 25 mcg PO .QD 02/24/24 02/24/24 History lisinopril 10 mg tablet 10 mg PO .QD 02/24/24 02/24/24 History semaglutide 1 mg/dose (4 mg/3 mL) 0.25 mg subcut QWEEK 02/24/24 02/24/24 History subcutaneous pen injector Allergies Allergy/AdvReac Type Severity Reaction Status Date / Time cephalexin Allergy Mild Rash Verified 02/24/24 08:21 Sulfa (Sulfonamide Allergy Mild Rash Verified 02/24/24 08:21 Antibiotics) adhesive AdvReac Mild Rash Verified 02/24/24 08:21 Exam Narrative Exam Narrative: General: Patient is alert, and oriented to person, place and time with normal affect, proper hygiene Skin: circular erythematous patches over arms and legs, maybe 4 total Head: atraumatic, acephalic Eyes: PERRLA, no nystagmus present, conjunctiva clear, no scleral icterus Ears: normal gross auditory acuity Neck: no masses palpated Heart: Normal rate and rhythm, no murmurs/rubs/gallops Lungs: no audible wheezes, crackles and normal breath sounds all lung abdul Abdomen: Normal audible bowel sounds, no distension, No palpable masses, no organomegaly, no rebound/guarding/ or rigidity Musculoskeletal: no swelling bilateral lower extremities Neuro: CN II-X grossly intact, normal sensation upper and lower extremities, no facial droop, normal 5/5 strength left breast: 1cm x 2cm mobile, palpable lump in the lower breast with some surrounding erythema with no nipple changes. Constitutional Vital Signs, click to edit/add: Last Vital Signs Temp 98.0 F 02/24/24 08:12 Pulse 76 02/24/24 09:50 Resp 19 02/24/24 09:50 BP 176/84 H 02/24/24 09:30 Pulse Ox 97 02/24/24 09:50 O2 Del Method Room Air 02/24/24 08:12 Results Labs Labs: Short CBC 02/24/24 Range/Units 08:42 WBC 6.6 (4.0-11.0) 10^3/uL Hgb 13.3 (12.0-16.0) g/dL Hct 40.4 (36.0-48.0) % Plt Count 223 (150-450) 10^3/uL BMP 02/24/24 08:42 Sodium 141 Potassium 4.0 Chloride 103 Carbon Dioxide 27.4 BUN 9.0 Creatinine 0.72 Glucose 95 Calcium 9.1 Assessment and Plan Assessment and Plan (1) Facial numbness: Assessment and Plan: Brain and neck imaging have all been negative. electrolytes negative. Patient to get Echo today and also be monitored on Telemetry. Restart home meds. May be viral in nature? Teleneurology recommended MRI which has been completed. Less suspicion this is CVA or stroke related. (2) Left breast mass: Assessment and Plan: Will get patient outpatient follow up with Dr. Crisostomo for breast ultrasound and further work up. Qualifiers: Breast mass location: lower inner quadrant Qualified Code(s): N63.24 - Unspecified lump in the left breast, lower inner quadrant (3) HTN (hypertension): Assessment and Plan: continue lisinopril Qualifiers: Hypertension type: primary hypertension Qualified Code(s): I10 - Essential (primary) hypertension (4) Hypothyroidism, acquired: Assessment and Plan: recheck TFT's in the morning (5) Post menopausal syndrome: Assessment and Plan: May continue premarin at discharge Plan Patient is a full code continue aspirin for prophylaxis Patient is observation status and is not expected to cross 2 midnights.
--- NOTE | 2024-02-24 10:52 | PC.NURSE ---
To MRI at this time.
--- NOTE | 2024-02-24 10:55 | PC.NURSE ---
nursing report given to Nayana ROBLES, all questions answered. pt to MRI and is aware of pending admission.
[2024-02-24 11:17] LABS: Alanine Aminotransferase 17 U/L (14-59); Albumin Globulin Ratio 0.9; Albumin Level 3.2 g/dL (3.4-5.0); Alkaline Phosphatase 56 U/L (46-116); Aspartate Amino Transferase 13 U/L (15-37); Bilirubin Direct 0.1 mg/dL (0.0-0.2); Bilirubin Total 0.6 mg/dL (0.2-1.0); Globulin 3.7 g/dL; Magnesium 1.8 mg/dL (1.8-2.4); Total Protein 6.9 g/dL (6.4-8.2)
[2024-02-24] MEDS: LORAZEPAM 2 MG/ML VIAL 1 MG IV ×2 (11:25→11:54)
--- NOTE | 2024-02-24 11:43 | MR_ITS ---
The [address] [address] Patient Name: DELVIS VALDEZ MRN: [id number] date: 1960 Sex: F Assigned Patient Location: ER Current Patient Location: ER Accession/Order Number: [id number] Exam Date: 02/24/2024 11:49 Report Date: 02/24/2024 12:33 At the request of: JOSEPHINE FOWLER Procedure: MR head/brain wo con EXAM: MR head/brain wo con HISTORY: Facial numbness COMPARISON: CT head and CTA head and neck performed earlier the same day.. TECHNIQUE: Multiplanar multisequence MR imaging of the brain was performed without intravenous contrast. Motion artifact mildly degrades evaluation. FINDINGS: Calvarium/skull base: No focal marrow replacing lesion suggestive of neoplasm. Orbits: Grossly unremarkable. Paranasal sinuses: Trace mucosal thickening involving the dependent right maxillary sinus. Brain: No restricted diffusion. No significant white matter disease. No mass effect, hemorrhage, or hydrocephalus. Grossly normal flow-related signal in the major intracranial arteries and dural sinuses. MR/MR head/brain wo con IMPRESSION: No acute ischemia. No acute intracranial process. Electronically authenticated by: ZEHRA RICE Date: 02/24/2024 12:33
--- NOTE | 2024-02-24 11:52 | PC.NURSE ---
To MRI at this time.
[2024-02-24] MEDS: ENOXAPARIN SODIUM 40 MG/0.4 ML SYRINGE SUBQ (15:06)
[2024-02-24] MEDS: LACTATED RINGER'S SOLUTION 1,000 ML 50 ML IV (15:06)
[2024-02-24] MEDS: ASPIRIN 81 MG TABLET.DR PO (15:06)
--- NOTE | 2024-02-24 15:51 | SWNOTE1 ---
SW reviewed PT/OT notes and pt is independent.
[2024-02-25] VITALS (11 sets, daily range): BP systolic 135–164; BP diastolic 78–85; PULSE 72–83; TEMP 36.7–36.8; O2SAT 96
[2024-02-25 05:50] LABS: Basophils Percent Auto 0.8 % (0.2-2.0); Eosinophils Absolute Auto 0.2 10^3/uL (0.0-0.7); Eosinophils Percent Auto 2.8 % (0.9-7.0); Hematocrit 38.1 % (36.0-48.0); Hemoglobin 12.7 g/dL (12.0-16.0); Immature Granulocytes Abs Auto 0.01 10^3/uL (0.00-0.03); Immature Granulocytes Pct Auto 0.2 % (0.0-0.5); Lymphocytes Absolute Auto 1.6 10^3/uL (1.2-3.8); Lymphocytes Percent Auto 29.1 % (20.5-60.0); Mean Corpuscular HGB Conc 33.3 g/dL (29.9-35.2); Mean Corpuscular Hemoglobin 28.7 pg (26.7-34.0); Mean Platelet Volume 9.3 fL (9.5-13.5); Monocytes Absolute Auto 0.4 10^3/uL (0.3-0.8); Monocytes Percent Auto 7.7 % (1.7-12.0); Neutrophils Absolute Auto 3.2 10^3/uL (1.4-6.5); Neutrophils Percent Auto 59.4 % (43.0-75.0); Platelet Count 211 10^3/uL (150-450); Red Blood Count 4.43 10^6/uL (4.20-5.40); Red Cell Distribution Width 12.9 % (11.0-15.0); White Blood Count 5.3 10^3/uL (4.0-11.0)
[2024-02-25] MEDS: LEVOTHYROXINE SODIUM 25 MCG TABLET PO (06:07)
[2024-02-25 06:13] LABS: Estimated Average Glucose 111 mg/dL; Glycohemoglobin A1C 5.5 % (4.5-6.2)
[2024-02-25 06:34] LABS: Alanine Aminotransferase 19 U/L (14-59); Albumin Globulin Ratio 0.9; Albumin Level 2.8 g/dL (3.4-5.0); Alkaline Phosphatase 52 U/L (46-116); Anion Gap 15.4; Aspartate Amino Transferase 14 U/L (15-37); BUN Creatinine Ratio 13.3; Bilirubin Total 0.7 mg/dL (0.2-1.0); Calcium 8.9 mg/dL (8.5-10.1); Carbon Dioxide 23.7 mmol/L (21.0-32.0); Chloride 104 mmol/L (98-107); Chol HDL Ratio 4.7; Cholesterol 251 mg/dL (<=200); Estimated GFR (African America >60 (>=60 mL/min/1.73m^2); Estimated GFR (Non-African Ame >60 (>=60 mL/min/1.73m^2); Globulin 3.2 g/dL; Glucose 92 mg/dL (74-106); HDL Cholesterol 53 mg/dL (40-60); Potassium 4.1 mmol/L (3.5-5.1); Sodium 139 mmol/L (136-145); Thyroid Stimulating Hormone 2.627 uIU/mL (0.358-3.740); Triglycerides 282 mg/dL (<=150); VLDL CHOLESTEROL 56.4 mg/dL
[2024-02-25] MEDS: LISINOPRIL 10 MG TABLET PO (08:02)
[2024-02-25] MEDS: ASPIRIN 81 MG TABLET.DR PO (08:02)
--- NOTE | 2024-02-25 08:51 | P.DS_ITS ---
DS: Providers Provider Date of admission: 02/24/24 12:50 Primary care physician: LEA SPRINGER Attending physician on admission: Jacey Rouse Consults: 02/24/24 10:38 Consult to TeleNeurology Routine Reason for consultation: Facial numbness 02/24/24 10:43 Occupational Therapy Eval and Treat Routine Reason for consultation: lip numbness/weakness/cva Has provider been notified: No Physical Therapy Eval and Treat Routine Reason for consultation: lip numbness/weakness/cva Has provider been notified: No Discharging clinician: Jacey Rouse DS: Diagnosis Discharge Diagnosis (1) Facial numbness: (2) Left breast mass: Qualifiers: Breast mass location: lower inner quadrant Qualified Code(s): N63.24 - Unspecified lump in the left breast, lower inner quadrant (3) HTN (hypertension): Qualifiers: Hypertension type: primary hypertension Qualified Code(s): I10 - Essential (primary) hypertension (4) Hypothyroidism, acquired: (5) Post menopausal syndrome: DS: Summary Hospital Course Hospital Course: Patient is a 63 y.o female with past medical history of Hypertension, hypothyroidism, and post menopausal symptoms, who presented to the ER today after waking up this morning at 6:45am with numbness of the left upper lip. She notes some dry skin and occasionally get some dry patches of which she uses lotion for. She denies any numbness or tingling of the lower extremities or upper extremities, she denies any recent illnesses. She denies headache or confusion. She denies slurring of speech. She has never had a stroke or CVA before. She has been elevated blood pressure, and her PCP placed her on semaglutide to see if weight loss would help improve this. 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 She denies trauma, or fever or chills. ER findings: CTA of the head and neck showed no acute findings or evidence of stenosis, I was able to get MRI which was also negative for acute stroke. CBC, CMP and magnesium all normal along with thyroid studies. BP has been 145/80's. Echo was normal. Ha1c 5.5. Telestroke seen and evaluated patient and recommended speech evaluation bc of her swallowing difficulty, This was normal but the speech therapist recommended outpatient barium swallow study which she can get set up through her PCP, Dr. Springer. This issue has been doing on for 1 year and nothing is worse about this issue. She has thyroid goiter. She will have close follow up with Dr. Crisostomo for her left breast lump. She is also encouraged to see her dentist for her dental pain. I am uncertain as to what is causing her lip numbness to come and go but at this time does not appear to be a stroke. She may return to the ER with any worsening signs or symptoms. She will continue to work on her cholesterol levels with weight loss and diet. Normal exam. Status at Discharge Functional status at discharge: independent ambulation Overall status at discharge: patient is back to baseline Time Spent with Patient Time attestation: Total time spent providing and/or coordinating discharge services: Time spent: greater than 30 minutes Exam Narrative Exam Narrative: General: Patient is alert, and oriented to person, place and time with normal affect, proper hygiene Skin: circular erythematous patches over arms and legs, maybe 4 total Head: atraumatic, acephalic Eyes: PERRLA, no nystagmus present, conjunctiva clear, no scleral icterus Ears: normal gross auditory acuity Neck: no masses palpated Heart: Normal rate and rhythm, no murmurs/rubs/gallops Lungs: no audible wheezes, crackles and normal breath sounds all lung abdul Abdomen: Normal audible bowel sounds, no distension, No palpable masses, no organomegaly, no rebound/guarding/ or rigidity Musculoskeletal: no swelling bilateral lower extremities Neuro: CN II-X grossly intact, normal sensation upper and lower extremities, no facial droop, normal 5/5 strength left breast: 1cm x 2cm mobile, palpable lump in the lower breast with some surrounding erythema with no nipple changes. Constitutional Vital Signs, click to edit/add: Last Vital Signs Temp 98.2 F 02/25/24 07:45 Pulse 81 02/25/24 08:15 Resp 16 02/25/24 07:45 BP 150/78 H 02/25/24 07:45 Pulse Ox 96 02/25/24 07:45 O2 Del Method Room Air 02/25/24 07:45 DS: Data Data Completed and Pending Labs on day of discharge: Labs from last 24 hours 02/25/24 02/24/24 05:16 08:42 WBC 5.3 6.6 RBC 4.43 4.65 Hgb 12.7 13.3 Hct 38.1 40.4 MCV 86.0 86.9 MCH 28.7 28.6 MCHC 33.3 32.9 RDW 12.9 13.0 Plt Count 211 223 MPV 9.3 L 9.1 L Neut % (Auto) 59.4 67.0 Lymph % (Auto) 29.1 24.5 [place] % (Auto) 7.7 6.2 Eos % (Auto) 2.8 1.5 Baso % (Auto) 0.8 0.6 Neut # (Auto) 3.2 4.4 Lymph # (Auto) 1.6 1.6 [place] # (Auto) 0.4 0.4 Eos # (Auto) 0.2 0.1 Baso # (Auto) 0.0 0.0 Abs Immat Gran (auto) 0.01 0.01 Imm/Tot Granulo (auto) 0.2 0.2 PT 9.8 INR <0.93 APTT 27.1 Sodium 139 141 Potassium 4.1 4.0 Chloride 104 103 Carbon Dioxide 23.7 27.4 Anion Gap 15.4 14.6 BUN 10.0 9.0 Creatinine 0.75 0.72 Est GFR ( Amer) >60 >60 Est GFR (Non-Af Amer) >60 >60 BUN/Creatinine Ratio 13.3 12.5 Glucose 92 95 Estimat Average Glucose 111 Hemoglobin A1c 5.5 Calcium 8.9 9.1 Magnesium 1.8 Total Bilirubin 0.7 0.6 Direct Bilirubin 0.1 AST 14 L 13 L ALT 19 17 Alkaline Phosphatase 52 56 Total Protein 6.0 L 6.9 Albumin 2.8 L 3.2 L Globulin 3.2 3.7 Albumin/Globulin Ratio 0.9 0.9 Triglycerides 282 H Cholesterol 251 H LDL Cholesterol, Calc 142.0 VLDL Cholesterol 56.4 HDL Cholesterol 53 Cholesterol/HDL Ratio 4.7 TSH 2.627 Discharge Plan Discharge Disposition: Home, Self-Care Condition: Good Discharge Medications: Continued levothyroxine 25 mcg tablet 25 mcg PO .QD Premarin 0.9 mg tablet 0.9 mg PO .QD lisinopril 10 mg tablet 10 mg PO .QD semaglutide 1 mg/dose (4 mg/3 mL) pen injector 0.25 mg subcut QWEEK Rx Instructions: for 4 weeks Activity: increase activity as tolerated Diet: advance to your usual diet Print Language: Yoruba Patient Instructions: Dasilva Palsy (DC), Paresthesia (GEN) Forms: Portal Instructions Follow Up Appointments: Dr. Crisostomo office @10:40, Dr. Springer @ 10:00 (who can order the barium swallow test) [phone] Discharge Date/Time: 02/25/24 14:29
--- NOTE | 2024-02-25 10:17 | REH.PTDLY ---
Physical Therapy Daily Note PT Daily Note/Assess Start: 02/25/24 10:13 Freq: Status: Active Protocol: Document 02/25/24 10:13 JULIENNE (Rec: 02/25/24 10:17 JULIENNE [id number]) Physical Therapy Daily Note/Assessment Time In 09:47 Time Out 09:54 Subjective Pt reports lip is still numb/ tingling and a little swollen feeling. States all tests are negative so far. Pt reports it was medication yesterday as to why she was unsteady with gait, doing fine today. Therapeutic Activity Minutes (minutes) 5 Therapeutic Activity Units 0 Therapeutic Activity Comments Pt Ind with all transfers in and out of bed. Gait with no AD Ind 150 feet with good balance and gait quality. Pt able to education coordinator place with conversation and have no sway or instability. Total Therapy Minutes 5 Total Physical Therapy Units 0 Daily Note Summary Pt Ind with all activities today. Back to baseline other than upper lip still having numbness. DC from PT.
--- NOTE | 2024-02-25 12:46 | CM.NOTE ---
Rounds made with Dr. Rouse, pt will discharge to home and f/u with Dr. Crisostomo for breast mass and f/u with Dr. Cm PCP.
--- NOTE | 2024-02-26 15:02 | CM.DCFOLLOWU ---
Person spoke with:patient How are you feeling?well How is your pain?no pain, some facial numbness still, advised to come back to ED if worsens/continues Did you understand your discharge instructions?yes Do you have any questions about your discharge instructions?no Were you given any prescriptions at discharge?no Were you able to get your prescriptions filled?N/A Do you understand how to take your medications as ordered?no Do you have any questions about your follow up appointment and do you plan to keep your follow up appointment? no questions, follow ups reviewed Is there anything else that you would like to discuss? Yes, she had an IV taken out yesterday prior to discharge and this was done by an aide. Pt wanted to know legally if an aide can remove an IV or if it has to be a nurse. RONEL advised that RONEL will find out the answer and return her call. RONEL sent email to Betina Trujillo, Nisreen Rico, and Lamar Flores Questions/Comments/Concerns/Other: see above
--- NOTE | 2024-02-26 15:58 | SWNOTE1 ---
SW called pt back to let her know that SW is waiting to hear back from Director in regards to aide removing IV.
--- NOTE | 2024-02-26 16:07 | SWNOTE1 ---
SW did hear back from Nisreen, director, and she confirmed with Rachel Virk, business services director, that nursing aides have a competency training during orientation to teach them how to remove IV'S. SW called pt back and updated her.
--- NOTE | 2024-02-26 16:08 | SWNOTE1 ---
Pt had no further questions and appreciate the call back.
== END 2024-02-25 14:29 | disposition home or self-care (01) ==
LOC: ER 10:50 → MS 12:58
PROVIDERS: Admitting Provider Family Medicine; Emergency Provider Emergency Medicine; PCP Family Medicine; Visit Provider Family Medicine
DX: R20.0 Anesthesia of skin (principal); N63.24 Unspecified lump in the left breast, lower inner quadrant; I10 Essential (primary) hypertension; E03.9 Hypothyroidism, unspecified; Z79.899 Other long term (current) drug therapy; N95.1 Menopausal and female climacteric states
CPT/HCPCS: 36415; 70450; 70496; 70498; 70551; 80048; 80053; 80061; 80076; 83036; 83735; 84443; 85025; 85610; 85730; 92610; 93005; 93306; 96372; 96374; 97161; 99285; G0378; J1650; J2060; Q9967

== ENCOUNTER 2024-03-09 13:14 | Outpatient (OUT) | payer OTHER, SELFPAY ==
--- NOTE | 2024-03-09 | US_ITS ---
Patient Name: DELVIS VALDEZ MR#: [id number] : 1960 Exam Date: 03/09/2024 Ordering Doctor: GILSON Schrader . RADIOLOGY REPORT PROCEDURE: MM TOMOSYNTHESIS DIAGNOSTIC BI, 03/09/2024, 13:21 US BREAST LT LIMITED, 03/09/2024, 13:54 COMPARISON: MM TOMOSYNTHESIS SCREENING BI, 04/17/2023. INDICATIONS: left breast lump Calculator Name NCI Breast Cancer Risk Assessment Tool 5 Year Breast Cancer Risk 1.60% Lifetime Breast Cancer Risk 6.20% Personal Breast Cancer No Personal Ovarian Cancer No Treatments Hysterectomy Family Cancers Mother with lung cancer at age ~60. LOCATION: [facility] BREAST COMPOSITION: The breasts are heterogeneously dense,which may obscure small masses. FINDINGS: DIAGNOSTIC CATEGORY 3--PROBABLY BENIGN FINDING. THE FOLLOWING FINDING(S) HAS A HIGH PROBABILITY OF A BENIGN ETIOLOGY: Scattered benign-appearing calcifications are present. Scattered benign-appearing lymph nodes are present. Scattered benign-appearing nodules are present. RIGHT BREAST: No significant suspicious finding. LEFT BREAST: New reniform nodule upper outer quadrant. Ultrasound demonstrates a normal-size normal morphology lymph node at the 2 o'clock position measuring 8.1 x 3.2 x 6.6 mm. This corresponds to the mammographic abnormality. Identified in the left breast at the 6 o'clock position in the region that has been improving on antibiotics is a heterogeneous 1.1 x 0.8 x 1.5 cm area of lobular hypoechogenicity with some acoustic shadowing and a dilated duct. In light of the improvement with antibiotics I suspect this to represent a resolving area of cellulitis or abscess. Short interval follow-up ultrasound in 3 months is recommended to document complete resolution. RECOMMENDATIONS: SHORT TERM FOLLOW-UP ULTRASOUND LEFT BREAST IN 3 MONTHS. PLEASE NOTE: A NORMAL MAMMOGRAM DOES NOT EXCLUDE THE POSSIBILITY OF BREAST CANCER. A CLINICALLY SUSPICIOUS PALPABLE LUMP SHOULD BE BIOPSIED. Dictated by: Fitz Astudillo MD on 03/09/2024 at 14:28 Approved by: Fitz Astudillo MD on 03/09/2024 at 14:31
--- OUTSIDE RECORDS SUMMARY | 2024-03-09 13:30 | XMS_ITS | CCD ---
Author Organization [facility] Care Team Providers Care 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 Name Role Phone RACHEAL RUGEN M Unavailable Unavailable NAYANA SOTO Unavailable Unavailable RACHEAL, RUGEN M Unavailable Unavailable ROULA, MARY Pandey Unavailable Unavailable Racheal, Erica Shipley Unavailable Unavailable JOCY SANDERS Admitting Unavailable JOCY SANDERS Attending Unavailable RACHEAL, DR TATE Primary Care [...] Care Unavailable KARASIK, DR DIOP Consulting Unavailable [place] Erica TOLBERT Primary Care Provider [phone] Erica Cm MD Unavailable RACHEAL RUGEN M Primary Care Unavailable RACHEAL, RUGEN M Referring Unavailable RACHEAL, RUGEN M Primary Care Unavailable RACHEAL, RUGEN M Referring Unavailable RACHEAL, RUGEN M Primary Care Unavailable RACHEAL, RUGEN M Referring Unavailable RACHEAL, RUGEN M Primary Care Unavailable KEN CRISOSTOMO Attending Unavailable TIMMISFERNANDO Attending Unavailable RACHEAL, RUGEN M Referring Unavailable JOCY SANDERS Attending Unavailable JOCY SANDERS Attending Unavailable NAYANA LAWSON Attending Unavailable JOCY SANDERS Attending Unavailable Allergies Allergy Classification Reported Allergen(s) Allergy Type Date of Onset Reaction(s) Facility (1 source) Adhesive bandage; Translations: [Adhesive Bandage] Propensity to adverse reactions (disorder) [facility] Repository (1 source) Latex; Translations: [Latex] Propensity to adverse reactions (disorder) [facility] (1 source) No Known Medication Allergies; Translations: [No Known Medication Allergies] Propensity to adverse reactions to drug (disorder) [facility] Repository (1 source) Misc-Drug Drug allergy (disorder) [facility] Repository (5 sources) Cephalexin Drug Allergy 10-26-19 [facility] (5 sources) Sulfamethoxazole / Trimethoprim Drug Allergy 10-26-19 [facility] (5 sources) Wound Dressing Adhesive Drug Allergy 10-26-19 Rash [facility] (1 source) Adhesive agent; Translations: [ADHESIVE] Propensity to adverse reactions to drug (disorder) 11-12-19 [facility] Repository Medications Current Medications Medication Drug Class(es) Dates Sig (Normalized) Sig (Original) clindamycin 300 mg oral capsule (4 sources) Lincosamide Antibacterial Start: 02-26-2024 End: 03-07-2024 take 1 capsule by mouth in the morning clindamycin (Cleocin) 300 MG capsule Indications: Mass of left breast, unspecified quadrant , Disorder of breast, unspecified Take 1 capsule (300 mg) by mouth in the morning and 1 capsule (300 mg) before bedtime. Do all this for 10 days. 20 capsule 02/26/2024 03/07/2024 Active estrogens, conjugated (snf) 0.9 mg oral tablet (5 sources) Estrogen Start: 04-23-2023 End: 04-22-2024 take 1 tablet by mouth once daily estrogens, conjugated, (Premarin) 0.9 MG tablet Indications: Vaginal dryness Take 1 tablet (0.9 mg) by mouth 1 (one) time each day at the same time 30 tablet 11 04/23/2023 04/22/2024 Active fluconazole 150 mg oral tablet (4 sources) Azole Antifungal Start: 02-26-2024 take 1 tablet by mouth once fluconazole (Diflucan) 150 MG tablet Indications: Mass of left breast, unspecified quadrant , Disorder of breast, unspecified Take 1 tablet (150 mg) by mouth every 3rd (third) day Repeat in 3 days if symptoms persist. 2 tablet 02/26/2024 Active levothyroxine sodium 0.025 mg oral tablet (5 sources) l-Thyroxine Start: 02-09-2024 take 1 tablet by mouth once daily levothyroxine (Synthroid, Levoxyl) 25 MCG tablet Indications: Acquired hypothyroidism (CMS/HCC) TAKE 1 TABLET BY MOUTH ONCE DAILY AT THE SAME TIME EACH DAY 100 tablet 2 02/09/2024 Active lisinopril 10 mg oral tablet (5 sources) Angiotensin Converting Enzyme Inhibitor Start: 05-26-2023 take 1 tablet by mouth in the morning lisinopril 10 MG tablet Indications: Essential hypertension (CMS/HCC) Take 1 tablet (10 mg) by mouth in the morning. 100 tablet 2 05/26/2023 Active Problems Active Problems Problem Classification Problem Date Documented Da te Episodic/Chronic Acute cerebrovascular disease (1 source) Acute cerebrovascular disease Onset: 4 Asthma (5 sources) Asthma; Translations: [Unspecified asthma, uncomplicated] Onset: 3 10-25-2022 Chronic Complications of surgical procedures or medical care (5 sources) Postablative ovarian failure; Translations: [Asymptomatic postprocedural ovarian failure] Onset: 3 10-25-2022 Chronic Disorders of lipid metabolism (5 sources) Mixed hyperlipidemia; Translations: [Mixed hyperlipidemia] Onset: 3 12-17-2022 Chronic Esophageal disorders (5 sources) Laryngopharyngeal reflux; Translations: [Gastro-esophageal reflux disease without esophagitis] Onset: 3 10-25-2022 Chronic Essential hypertension (5 sources) Essential hypertension; Translations: [Essential (primary) hypertension] Onset: 3 10-25-2022 Chronic Menopausal disorders (5 sources) Disorder associated with menstruation AND/OR menopause; Translations: [Menopausal and female climacteric states] Onset: 4 08-29-2023 Chronic Nonmalignant breast conditions (6 sources) Fibrocystic disease of breast; Translations: [Diffuse cystic mastopathy of unspecified breast] Onset: 4 02-26-2024 Chronic Nonmalignant breast conditions (6 sources) Lump in left breast; Translations: [Unspecified lump in the left breast, unspecified quadrant] 02-26-2024 Episodic Other circulatory disease (5 sources) Raynaud's phenomenon; Translations: [Raynaud's syndrome without gangrene] Onset: 3 10-25-2022 Chronic Other gastrointestinal disorders (2 sources) Dysphagia; Translations: [Dysphagia, unspecified] 03-03-2024 Episodic Other nervous system disorders (2 sources) Dasilva's palsy; 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] 03-03-2024 Episodic Other screening for suspected conditions (not mental disorders or infectious disease) (5 sources) Plain X-ray result abnormal; Translations: [Abnormal findings on diagnostic imaging of other specified body structures] Onset: 3 10-25-2022 Chronic Other screening for suspected conditions (not mental disorders or infectious disease) (4 sources) Encounter for screening mammogram for malignant neoplasm of breast; Translations: [ENC SCR MAMMO MALIG NEOPLASM BREAST] Onset: 3 Episodic Residual codes; unclassified (1 source) Family history of malignant neoplasm of trachea, bronchus and lung; Translations: [FAM HX MALIG NEOPLSM TRACH BRON LNG] Onset: 3 Episodic Residual codes; unclassified (1 source) Pain, unspecified; Translations: [Pain, unspecified] Onset: 4 Episodic Thyroid disorders (20 sources) Nontoxic single thyroid nodule; Translations: [Hypothyroidism, unspecified] Onset: 2 Chronic Unclassified (1 source) Periorbital cellulitis; Translations: [Periorbital cellulitis] Onset: 7 Past or Other Problems Problem Classification Problem Date Documented Da te Episodic/Chronic Deficiency and other anemia (5 sources) Anemia; Translations: [Anemia, unspecified] Onset: 10-25-2022 10-25-2022 Episodic Other gastrointestinal disorders (4 sources) Dysphagia, unspecified; Translations: [DYSPHAGIA UNSPECIFIED] Onset: 08-04-2021 Episodic Other gastrointestinal disorders (5 sources) Slow transit constipation; Translations: [Slow transit constipation] Onset: 10-25-2022 10-25-2022 Episodic Other nutritional; endocrine; and metabolic disorders (5 sources) Underweight; Translations: [Underweight] Onset: 10-25-2022 10-25-2022 Episodic Other skin disorders (1 source) Localized swelling, mass and lump, neck; Translations: [LOCALIZED SWELLING MASS AND LUMP NECK] Onset: 08-08-2021 Episodic Other upper respiratory disease (5 sources) Feeling of lump in throat; Translations: [Globus sensation] Onset: 10-25-2022 10-25-2022 Episodic Results Test Name Value Interpretation Reference Range Facility MG MAMM SCREEN 3D FINN CADon 04-09-2022 MG MAMM SCREEN 3D FINN CAD Patient: DELVIS VALDEZ Exam Date: 04/09/2022 : 1960 Gender:F Ordering : DR JADON VELA . Admission #: [id number] Family : Order #: [id number] CLICK HERE TO VIEW EXAM RADIOLOGY REPORT [...] lung cancer at age 58. LOCATION: [facility] BREAST COMPOSITION: Heterogeneously dense,which may obscure [...] M.D. on 04/11/2022 at 08:08 Normal [facility] US THYROIDon 04-04-2022 US THYROID EXAMINATION: [...] follow-up required Diffuse thyroid atrophy TI-RADS: [employer] TI-RADS committee's white paper recommendations for thyroid lesions classified as TR3 (mildly suspicious) are listed below: > 1.5 cm. Follow-up ultrasound in 1, 3, and 5 years. > 2.5 cm. FNA. J. Am Donte Radiol 2017;14:587-595. Electronically authenticated by: ANABELLA MATHIS Date: 2022-04-04 16:39 Normal [facility] TSHon 09-21-2021 TSH 1.478 uIU/mL Normal 0.358-3.740 [facility] Comment on above: Performed By: #### T SH #### [facility] [address] [address] [address] Kiara Miles TSHon 08-08-2021 TSH 5.390 uIU/mL High 0.400-4.500 [facility] Comment on above: Performed By: #### T SH #### [facility] [address] [place], [place] [id number] US THYROIDon 08-06-2021 US THYROID EXAMINATION: US [...] 7 mm left thyroid nodule TI-RADS: [employer] TI-RADS committee's white paper recommendations for thyroid lesions classified as TR3 (mildly suspicious) are listed below: > 1.5 cm. Follow-up ultrasound in 1, 3, and 5 years. > 2.5 cm. FNA. J. Am Donte Radiol 2017;14:587-595. Electronically authenticated by: ANABELLA MATHIS Date: 2021-08-06 07:05 Normal [facility] ED Provider Noteon 7 HIM IP Note OR Quebracho Tanner Normal [facility] Otolaryngology Consultationo n 10-29-2016 Otolaryngology Consultation [...] Rate: 92 bpmAssessment/Plan 1. Uvular swelling Ordered: 52880 AMB Laryngoscopy diagnostic 31127 AMB Office OP Visit [facility] Clinic 2. Dysphasia Ordered: 14290 AMB Laryngoscopy diagnostic 37023 AMB Office OP Visit [facility] 3. Chronic GERD 4. Hoarse [...] I asked her to speak with Dr. Cm about possibly stopping this for a period [...] Mary fry MD 10/29/16 13:51 EDT Normal [facility] Vital Signs Date Time Vital Sign Value Performing Clinician Nathaniel bonilla 03-03-2024 10:19-0500 Body height 167.6 cm Jocy Sanders CONFERENCE PLANNING MANAGER Work Phone: [facility] 03-03-2024 10:19-0500 Body mass index (BMI) [Ratio] 23.4 kg/m2 Jocy Sanders CONFERENCE PLANNING MANAGER Work Phone: [facility] 03-03-2024 10:19-0500 Body weight 65.77 kg Jocy Sanders CONFERENCE PLANNING MANAGER Work Phone: [facility] 03-03-2024 10:19-0500 Diastolic blood pressure 72 mm[Hg] Jocy Sanders CONFERENCE PLANNING MANAGER Work Phone: [facility] 03-03-2024 10:19-0500 Heart rate 88 /min Jocy Sanders CONFERENCE PLANNING MANAGER Work Phone: [facility] 03-03-2024 10:19-0500 SaO2% (BldA) [Mass fraction] 96 % Jocy Sanders CONFERENCE PLANNING MANAGER Work Phone: [facility] 03-03-2024 10:19-0500 Systolic blood pressure 112 mm[Hg] Jocy Sanders CONFERENCE PLANNING MANAGER Work Phone: [facility] 02-26-2024 11:22-0500 Body mass index (BMI) [Ratio] 23.26 kg/m2 Nayana RIGGINS Work Phone: [facility] 02-26-2024 11:22-0500 Body weight 65.37 kg Nayana RIGGINS Work Phone: [facility] 02-26-2024 11:22-0500 Diastolic blood pressure 70 mm[Hg] Nayana RIGGINS Work Phone: [facility] 02-26-2024 11:22-0500 Systolic blood pressure 114 mm[Hg] Nayana RIGGINS Work Phone: [facility] Healthcare Encounters Encounter Date Encounter Type Care Provider Facility Start: 03-03-2024 End: 03-03-2024 ambulatory JOCY SANDERS Not Available Start: 03-03-2024 End: 03-03-2024 Office outpatient visit 25 minutes Jocy Sanders CONFERENCE PLANNING MANAGER Work Phone: [facility] Comment on above: Dysphagia, unspecifi ed type (Primary Dx); Thyroid nodule (CMS/HCC); Dasilva's palsy Start: 02-26-2024 End: 02-26-2024 Bamboo flowsheet Nayana RIGGINS Work Phone: [facility] Start: 02-26-2024 End: 02-26-2024 Bamboo flowsheet Nayana RIGGINS Work Phone: [facility] Start: 02-26-2024 End: 02-26-2024 ambulatory NAYANA LAWSON Not Available Start: 02-26-2024 End: 02-26-2024 Office outpatient visit 15 minutes Nayana RIGGINS Work Phone: [facility] Comment on above: Mass of left breast, unspecified quadrant; Fibrocystic breast disease (FCBD), unspecified laterality; Dense breasts, unspecified; Disorder of breast, unspecified Start: 02-26-2024 ambulatory [facility] Start: 02-24-2024 ambulatory [facility] Start: 02-24-2024 End: 02-27-2024 Emergency department patient visit [facility] Start: 12-18-2023 End: 12-18-2023 ambulatory JOCY SANDERS Not Available Start: 06-04-2023 End: 06-04-2023 ambulatory FERNANDO GRAHAM Not Available Start: 04-23-2023 End: 04-23-2023 ambulatory KEN CRISOSTOMO Not Available Start: 03-19-2023 End: 03-19-2023 ambulatory JOCY SANDERS Not Available Start: 04-23-2022 End: 04-23-[address] JADON VELA Facility:[facility] Start: 04-09-2022 End: 04-10-[address] JADON VELA Facility:[facility] Start: 04-04-2022 End: 04-05-[address] FERNANDO GRAHAM Facility:[facility] Start: 09-21-2021 End: 09-22-[address] FERNANDO GRAHAM Facility:[facility] Start: 08-04-2021 End: 08-05-2021 ambulatory JOCY SANDERS Facility:[facility] Start: 11-24-2016 End: 11-24-2016 Emergency department patient visit [facility] Start: 10-29-2016 End: 10-30-2016 Ambulatory MARY Katherin CELESTE Facility[facility] Procedures Date Procedure Procedure Detail Performing Clinician Start: 05-22-2023 Mammography Nayana RIGGINS Work Phone: Plan of Treatment Date Care Activity Detail Author Start: 11-12-2025 Screening for malign ant neoplasm of colon [facility] Start: 03-06-2025 Screening for malign ant neoplasm of cervix [facility] Start: 05-22-2024 Screening for malign ant neoplasm of breast Mammogram [facility] Start: 04-28-2024 End: 04-28-2024 Patient encounter procedure 04/28/2024 3:00 PM EST Office Visit [facility] [address] [place] [id number] Ken Crisostomo, DO [address] [place], [place] [id number] [facility] Start: 03-03-2024 End: 03-03-2025 US Thyroid gland US thyroid Imaging Routine Dysphagia, unspecified type Thyroid nodule (CMS/HCC) Expected: 03/03/2024, Expires: 03/03/2025 [facility] Work Phone: Comment on above: Expected: 03/03/2024 , Expires: 03/03/2025 Start: 03-03-2024 End: 03-03-2024 Patient encounter procedure 03/03/2024 10:00 AM EST Office Visit [facility] [address] [facility] [address] [place] [id number] Jocy Sanders CONFERENCE PLANNING MANAGER [address] [facility] [address] [place] [address] [facility] Start: 02-26-2024 End: 04-27-2025 US Breast - left Left breast US complete Imaging Routine Mass of left breast, unspecified quadrant Fibrocystic breast disease (FCBD), unspecified laterality Dense breasts, unspecified Disorder of breast, unspecified Expected: 02/26/2024 (Approximate), Expires: 04/27/2025 [facility] Work Phone: Comment on above: Expected: 02/26/2024 (Approximate), Expires: 04/27/2025 Start: 12-07-2023 Influenza vaccination Influenza Vacc ine (#1) [facility] Start: 09-15-1979 Screening for malign ant neoplasm of cervix Pap Smear [facility] Start: 1966 Pneumococcal Vaccine : 65+ Years (1 of 2 - PCV) Pneumococcal Vaccine: 65+ Years (1 of 2 - PCV) [facility] Start: 1960 Screening for malign ant neoplasm of colon [facility] Payers Date Payer Category Payer Private Health Insurance [id number] 1959 Unknown [id number] 1959 Unknown [id number] 1960 Unknown [id number] 2.16.84 [id number] 1960 Unknown [id number] 2.16.84 0.1.141348.3.579.2.593 1960 Unknown [id number] 2.16.84 0.1.920893.3.579.2.593 1958 Unknown [id number] 2.16.84 0.1.487898.3.579.2.593 1960 Unknown [id number] 2.16.84 0.1.447356.3.579.2.593 1958 Unknown [id number] 2.16.8 40.1.119506.3.579.2.1286 1958 Unknown [id number] 2.16.8 40.1.458860.3.579.2.1286 1958 Unknown [id number] 2.16.8 40.1.968085.3.579.2.1286 1958 Unknown [id number] 2.16.8 40.1.844628.3.579.2.1286 1958 Unknown [id number] 2.16.8 40.1.747342.3.579.2.1286 1958 Unknown [id number] 2.16.84 0.1.323111.3.579.2.1259 1960 Unknown [id number] 2.16.84 0.1.003132.3.579.2.1259 1958 Unknown [id number] 2.16.84 0.1.930101.3.579.2.1259 1960 Unknown [id number] 2.16.84 0.1.888597.3.579.2.1259 1960 Unknown [id number] 2.16.84 0.1.540608.3.579.2.1259 1960 Unknown [id number] 2.16.840 .1.020041.3.579.2.1259 04-07-1799 Unknown Social History Date Type Detail Facility Start: 10-25-2022 Tobacco smoking stat [facility] [place] [facility] Never smoked tobacco [facility] Start: 10-25-2022 Tobacco use and exposure Smokeless t obacco non-user [facility] Start: 12-18-2023 End: 03-03-2024 Alcoholic beverage intake Lifetime non-drinker (finding) [facility] Start: 12-18-2023 End: 03-03-2024 History of Social function [facility] Start: 12-18-2023 End: 03-03-2024 [id number] Health Literacy [facility] How often do you nee d to have someone help you when you read instructions, pamphlets, or other written material from your doctor or pharmacy [SILS] Patient declines to respond [facility] Do you feel stress - tense, restless, nervous, or anxious, or unable to sleep at night because your mind is troubled all the time - these days [OSQ] Not at all [facility] Start: 12-16-2022 Alcohol Comment Caffeine intak e : 1-2 cups per day coffee / tea [facility] Start: 1960 Sex assigned at Female [facility] Start: 04-16-2023 Gender identity Identifies as female gender (finding) [facility] History of Present illness Narrative 03-03-2024 Jocy Sanders NP - 03/03/2024 10:00 AM EST Note Date & Type Note Facility 03-03-2024 History of Presen t illness Narrative Images from the original note were not included. HPI ER Follow-up Additional comments: [facility] 02/23 for cheek and face numbness Last edited by Donna Lr MA on 03/03/2024 7:53 AM. Subjective Patient ID: Delvis Valdez is a 63 y.o. female who presents for ER Follow-up ([facility] 02/23 for cheek and face numbness ). Pt went to ER at [facility] on 02/23 due to face and cheek numbness, she did have labs CT and MRI all came back negative for stroke. Pt stated they said it was bells palsey , no meds were changed or given. Pt is now better no problems Pt is on an abx, through [facility] due to having a mass in her breast and lump did go down since starting abx, it is left breast She reports that everything is better since her ER visit. She does have a history of thyroid nodule. Her voice is hoarse and she is having some difficulty swallowing. We discussed getting another ultrasound to make sure that the nodule has not gotten larger. Current Outpatient Medications on File Prior to Visit Medication Sig Dispense Refill clindamycin (Cleocin) 300 MG capsule Take 1 capsule (300 mg) by mouth in the morning and 1 capsule (300 mg) before bedtime. Do all this for 10 days. 20 capsule 0 estrogens, conjugated, (Premarin) 0.9 MG tablet Take 1 tablet (0.9 mg) by mouth 1 (one) time each day at the same time 30 tablet 11 fluconazole (Diflucan) 150 MG tablet Take 1 tablet (150 mg) by mouth every 3rd (third) day Repeat in 3 days if symptoms persist. 2 tablet 0 levothyroxine (Synthroid, Levoxyl) 25 MCG tablet TAKE 1 TABLET BY MOUTH ONCE DAILY AT THE SAME TIME EACH DAY 100 tablet 2 lisinopril 10 MG tablet Take 1 tablet (10 mg) by mouth in the morning. 100 tablet 2 No current facility-administered medications on file prior to visit. I have reviewed and reconciled the history and medication list with the patient today. Allergies Allergen Reactions Cephalexin Other Reaction(s): Unknown Sulfamethoxazole-Trimethoprim Other Reaction(s): Unknown Wound Dressing Adhesive Rash Social History Tobacco Use Smoking status: Never Smokeless tobacco: Never Substance Use Topics Alcohol use: Never Comment: Caffeine intake : 1-2 cups per day coffee / tea Drug use: Never Family History Problem Relation Name Age of Onset Hypertension Mother Yana Hyperlipidemia Mother Yana Cancer Mother Yana COPD Mother Yana Heart disease Father Dias Heart disease Maternal Grandmother Elizabeth Hypertension Maternal Grandmother Elizabeth Diabetes Paternal Grandmother Past Medical History: Diagnosis Date Acquired hypothyroidism (CMS/HCC) Anemia Anemia Asthma (CMS/HCC) Asthma (CMS/HCC) At standard risk for fall BMI 24.0-24.9, adult Breast cancer screening Depression screening Difficulty swallowing Encounter for gynecological examination (general) (routine) without abnormal findings Globus sensation HTN (hypertension) (CMS/HCC) LPRD (laryngopharyngeal reflux disease) Lump in throat Lung nodule 2020 8mm right lower Miscarriage x1 Osteoporosis screening Post menopausal syndrome x2 Sinusitis Surgical menopause, symptomatic Thyroid nodule (CMS/HCC) Underweight Past Surgical History: Procedure Laterality Date APPENDECTOMY 1973 BRONCHOSCOPY HYSTERECTOMY 1996 LASER LAPAROSCOPY X2 LASIK 2000 NASAL SEPTUM SURGERY 1998 dr rodriguez [place] TONSILLECTOMY & ADENOIDECTOMY <AGE 10 1963 SHOULDER SURGERY 2004 left shoulder mass removed, SINUS SURGERY VAGINAL DELIVERY WRIST SURGERY 2019 dr phillips excision mass right wrist Visit Vitals Smoking Status Never Review of Systems Constitutional: Positive for appetite change. HENT: Negative. Eyes: Negative. Respiratory: Negative. Cardiovascular: Negative. Gastrointestinal: Negative. Genitourinary: Negative. Musculoskeletal: Negative. Skin: Negative. Neurological: Anderson Palsy dx from ER Psychiatric/Behavioral: Negative. Objective Physical Exam Vitals reviewed. Constitutional: Appearance: Normal appearance. HENT: Head: Normocephalic. Nose: Nose normal. Mouth/Throat: Mouth: Mucous membranes are moist. Comments: Hoarse voice quality Eyes: Conjunctiva/sclera: Conjunctivae normal. Cardiovascular: Rate and Rhythm: Normal rate. Pulmonary: Effort: Pulmonary effort is normal. Skin: General: Skin is warm and dry. Neurological: General: No focal deficit present. Mental Status: She is alert and oriented to person, place, and time. Psychiatric: Mood and Affect: Mood normal. Behavior: Behavior normal. Assessment/Plan Diagnoses and all orders for this visit: Dysphagia, unspecified type - US thyroid; Future Await results of US. She has a nodule on her thyroid. Thyroid nodule (CMS/HCC) - US thyroid; Future Await results of US. 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 No follow-ups on file. documented in this encounter [facility] History of Present illness Narrative 02-26-2024 GILSON Valentin - 02/26/2024 10:40 AM EST Note Date & Type Note Facility 02-26-2024 History of Presen t illness Narrative Images from the original note were not included. Reason for Appointment: Patient ID: Delvis Valdez is a 63 y.o. female who presents for left breast lump Patient presents today for Acute Visit. MEDICATIONS Current Outpatient Medications Medication Instructions estrogens (conjugated) (PREMARIN) 0.9 mg, Oral, Every 24 hours levothyroxine (Synthroid, Levoxyl) 25 MCG tablet TAKE 1 TABLET BY MOUTH ONCE DAILY AT THE SAME TIME EACH DAY lisinopril 10 mg, Oral, Daily ALLERGIES Allergies Allergen Reactions Cephalexin Other Reaction(s): Unknown Sulfamethoxazole-Trimethoprim Other Reaction(s): Unknown Wound Dressing Adhesive Rash PROBLEMS Active Ambulatory Problems Diagnosis Date Noted Abnormal x-ray 10/25/2022 Acquired hypothyroidism (CMS/HCC) 10/25/2022 Anemia 10/25/2022 Asthma (CMS/HCC) 10/25/2022 Essential hypertension (CMS/HCC) 10/25/2022 Globus sensation 10/25/2022 LPRD (laryngopharyngeal reflux disease) 10/25/2022 Postablative ovarian failure 10/25/2022 Raynaud's phenomenon 10/25/2022 Slow transit constipation 10/25/2022 Thyroid nodule (CMS/HCC) 10/25/2022 Underweight 10/25/2022 Mixed hyperlipidemia ([facility]/HCC) 12/17/2022 Post menopausal syndrome 08/29/2023 Resolved Ambulatory Problems Diagnosis Date Noted No Resolved Ambulatory Problems Past Medical History: Diagnosis Date At standard risk for fall BMI 24.0-24.9, adult Breast cancer screening Depression screening Difficulty swallowing Encounter for gynecological examination (general) (routine) without abnormal findings HTN (hypertension) (CMS/HCC) Lump in throat Lung nodule 2020 Miscarriage Osteoporosis screening Sinusitis Surgical menopause, symptomatic HISTORY PAST MEDICAL HISTORY SOCIAL HISTORY Past Medical History: Diagnosis Date Acquired hypothyroidism (CMS/HCC) Anemia Anemia Asthma ([facility]/HCC) Asthma (CMS/HCC) At standard risk for fall BMI 24.0-24.9, adult Breast cancer screening Depression screening Difficulty swallowing Encounter for gynecological examination (general) (routine) without abnormal findings Globus sensation HTN (hypertension) (CMS/HCC) LPRD (laryngopharyngeal reflux disease) Lump in throat Lung nodule 2020 8mm right lower Miscarriage x1 Osteoporosis screening Post menopausal syndrome x2 Sinusitis Surgical menopause, symptomatic Thyroid nodule (CMS/HCC) Underweight Social History Tobacco Use Smoking status: Never Smokeless tobacco: Never Substance Use Topics Alcohol use: Never Comment: Caffeine intake : 1-2 cups per day coffee / tea Drug use: Never FAMILY HISTORY Family History Problem Relation Name Age of Onset Hypertension Mother Yana Hyperlipidemia Mother Yana Cancer Mother Yana COPD Mother Yana Heart disease Father Dias Heart disease Maternal Grandmother Elizabeth Hypertension Maternal Grandmother Elizabeth Diabetes Paternal Grandmother SURGICAL HISTORY Past Surgical History: Procedure Laterality Date APPENDECTOMY 1973 BRONCHOSCOPY HYSTERECTOMY 1997 LASER LAPAROSCOPY X2 LASIK 2000 NASAL SEPTUM SURGERY 1998 dr jennifer NM TONSILLECTOMY & ADENOIDECTOMY <AGE 10 1963 SHOULDER SURGERY 2004 left shoulder mass removed, SINUS SURGERY VAGINAL DELIVERY WRIST SURGERY 2020 dr phillips excision mass right wrist REVIEW OF SYSTEMS Review of Systems: Review of Systems Constitutional: Negative. HENT: Negative. Eyes: Negative. Respiratory: Negative. Cardiovascular: Negative. Gastrointestinal: Negative. Genitourinary: Negative. Musculoskeletal: Negative. Skin: Negative. Neurological: Negative. All other systems reviewed and are negative. Hematological: Negative. Endocrine: Negative. Allergic/Immunologic: Negative. OBJECTIVE Objective: Physical Exam Constitutional: Appearance: Normal appearance. She is well-developed and normal weight. Genitourinary: Genitourinary Comments: Palpable lump 1cm below nipple, 2 x 2 cm mobile Breasts: Breasts are soft. Right: Normal. Left: Tenderness present. No nipple discharge. HENT: Head: Normocephalic. Cardiovascular: Rate and Rhythm: Normal rate and regular rhythm. Pulses: Normal pulses. Pulmonary: Effort: Pulmonary effort is normal. Breath sounds: Normal breath sounds. Chest: Abdominal: General: Bowel sounds are normal. There is no distension. Palpations: Abdomen is soft. Tenderness: There is no abdominal tenderness. There is no guarding or rebound. Musculoskeletal: General: No swelling. Normal range of motion. Right lower leg: No edema. Left lower leg: No edema. Lymphadenopathy: Upper Body: Left upper body: No axillary adenopathy. Neurological: General: No focal deficit present. Mental Status: She is alert and oriented to person, place, and time. Skin: General: Skin is warm and dry. Psychiatric: Mood and Affect: Mood normal. Behavior: Behavior normal. Thought Content: Thought content normal. Judgment: Judgment normal. Vitals and nursing note reviewed. Exam conducted with a pilot boat deckhand present. Vitals: Estimated body mass index is 23.26 kg/m as calculated from the following: Height as of 12/18/23: 5' 6 . Weight as of this encounter: 144 lb 1.9 oz. BP: 114/70 No LMP recorded. ASSESSMENT & PLAN ICD-10-CM 1. Mass of left breast, unspecified quadrant N63.20 Patient voiced that she has a left breast lump. Patent already has a marker in right breast from previous. Patient voiced that she is having left breast pain. Patient does have palpable lump 1cm below nipple 2x2 cm in size and mobile. Patient will be given order for left breast ultrasound. Clindamycin and Diflucan sent to patients pharmacy and patient will obtain breast ultrasound prior to taking antibiotics. Documented by Sandra Griffiths LPN on behalf of: GILSON Valentin documented in this encounter [facility] Evaluation note Note Date & Type Note Facility Evaluation note Diagnosis Mass of left breast, unspecified quadrant Fibrocystic breast disease (FCBD), unspecified laterality Dense breasts, unspecified Disorder of breast, unspecified documented in this encounter [facility] Evaluation note Note Date & Type Note Facility Evaluation note Diagnosis Dysphagia, unspecified type- Primary Thyroid nodule (CMS/HCC) Nontoxic uninodular goiter Dasilva's palsy documented in this encounter [facility] Summary Purpose Family History No Family History [...] DATE CREATED AUTHOR AUTHOR'S ORGANIZ ATION 10/01/2017 [facility] DATE CREATED AUTHOR AUTHOR'S ORGANIZ ATION 08/09/2021 [facility] DATE CREATED AUTHOR AUTHOR'S ORGANIZ ATION 04/24/2022 [facility] DATE CREATED AUTHOR AUTHOR'S ORGANIZ ATION 03/02/2024 [facility] DATE CREATED AUTHOR AUTHOR'S ORGANIZ ATION 03/06/2024 [facility] Specialists EPIC Care Teams (unrecognized sec tion and content) 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 Relationship 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 Start Date End Date Erica Cm MD [address] [address] PCP - General Family Medicine 10/29/22 Erica Cm MD [address] [address] PCP - Medical [facility] 09/01/10 04/06/99 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 Relationship Specialty Start Date End Date Erica mC MD [address] [facility] [address] [place] [address] PCP - General Family Medicine 10/29/22 Erica Cm MD [address] [facility] [address] [place] [address] PCP - Medical [place] [facility] 09/01/10 04/06/99 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 [employer] provides no warranty or guarantee of the accuracy or completeness of information in this document.
== END 2024-03-09 13:15 | disposition home or self-care (01) ==
LOC: MAMMO 13:14
PROVIDERS: PCP Family Medicine; Visit Provider Physician Assistant
DX: N63.20 Unspecified lump in the left breast, unspecified quadrant (principal); N60.19 Diffuse cystic mastopathy of unspecified breast; R92.30 Dense breasts, unspecified; N64.9 Disorder of breast, unspecified; Z80.1 Family history of malignant neoplasm of trachea, bronchus and lung; N63.21 Unspecified lump in the left breast, upper outer quadrant
CPT/HCPCS: 76642; 77066; G0279

== ENCOUNTER 2024-03-22 09:46 | Outpatient (OUT) | payer OTHER, SELFPAY ==
--- NOTE | 2024-03-22 09:49 | US_ITS ---
The [address] [address] Patient Name: DELVIS VALDEZ MRN: [id number] date: 1960 Sex: F Assigned Patient Location: US Current Patient Location: Accession/Order Number: [id number] Exam Date: 03/22/2024 09:50 Report Date: 03/22/2024 14:57 At the request of: JOCY ROGERS Procedure: US thyroid EXAMINATION: US thyroid HISTORY: Thyroid Nodule COMPARISON: 05/22/2023 TECHNIQUE: Sonographic images of the thyroid gland were obtained. FINDINGS: The right thyroid lobe is atrophic measuring 4.5 x 1.0 x 0.4 cm. Heterogeneous echotexture with a single 2 mm nodule The thyroid isthmus measures 0.5 mm, no focal nodule The left thyroid lobe is atrophic measuring 3.3 x 1.0 x 0.5 cm. Heterogeneous echotexture with a single 5 mm TR 4 nodule US/US thyroid IMPRESSION: Atrophic thyroid gland with left thyroid TR 4 nodule TI-RADS: TR 4 Electronically authenticated by: ANABELLA MATHIS Date: 03/22/2024 14:57
== END 2024-03-22 09:47 | disposition home or self-care (01) ==
LOC: US 09:46
PROVIDERS: PCP Family Medicine; Visit Provider Nurse Practitioner Family
DX: E04.1 Nontoxic single thyroid nodule (principal)
CPT/HCPCS: 76536

== ENCOUNTER 2024-06-02 20:56 | Outpatient (REF) | payer OTHER, SELFPAY ==
--- OUTSIDE RECORDS SUMMARY | 2024-06-02 21:01 | XMS_ITS | CCD ---
Author Organization [facility] Care Team Providers Care Director Of Professional Services Name Role Phone RACHEAL, RUGEN M Unavailable Unavailable NAAYNA SOTO M Unavailable Unavailable RACHEAL, RUGEN M Unavailable Unavailable CELESTE, MARY W Unavailable Unavailable [place], Erica Shipley Unavailable Unavailable JOCY SANDERS Admitting [...] Care Unavailable KARASIK, DR DIOP Consulting Unavailable Racheal Erica TOLBERT Primary Care Provider Erica Cm MD Unavailable RACHEAL, RUGEN M Primary Care Unavailable RACHEAL, RUGEN M Referring Unavailable RACHEAL, RUGEN M Primary Care Unavailable RACHEAL, RUGEN M Referring Unavailable RACHEAL, RUGEN M Primary Care Unavailable RACHEAL, RUGEN M Referring Unavailable RACHEAL, RUGEN M Primary Care Unavailable TIMMIS, DIGNA Osullivan Attending Unavailable TIMMIS, DIGNA H Attending Unavailable RACHEAL, RUGEN M Referring Unavailable JOCY SANDERS Attending Unavailable RENNYNAYANA Attending Unavailable JOCY SANDERS Attending Unavailable Allergies Allergy Classification Reported Allergen(s) Allergy Type Date of Onset Reaction(s) Facility (1 source) Adhesive bandage; Translations: [Adhesive Bandage] Propensity to adverse reactions (disorder) [facility] Repository (1 source) Latex; Translations: [Latex] Propensity to adverse reactions (disorder) [facility] (1 source) No Known Medication Allergies; Translations: [No Known Medication Allergies] Propensity to adverse reactions to drug (disorder) [facility] Repository (1 source) Misc-Drug Drug allergy (disorder) [facility] Repository (14 sources) Cephalexin Drug Allergy 10-26-19 [facility] (14 sources) Sulfamethoxazole / Trimethoprim Drug Allergy 10-26-19 [facility] (14 sources) Wound Dressing Adhesive Drug Allergy 10-26-19 Rash [facility] (1 source) Adhesive agent; Translations: [ADHESIVE] Propensity to adverse reactions to drug (disorder) 11-12-19 [facility] Repository Medications Current Medications Medication Drug Class(es) Dates Sig (Normalized) Sig (Original) azithromycin 250 mg oral tablet (2 sources) Macrolide Antimicrobial Start: 12-18-2023 End: 12-23-2023 take 2 tablets by mouth once daily, then take 1 tablet by mouth once daily azithromycin (Zithromax) 250 MG tablet Indications: Acute non-recurrent pansinusitis Take 2 tablets (500 mg) by mouth Daily for 1 day, THEN 1 tablet (250 mg) Daily for 4 days. 6 tablet 12/18/2023 12/23/2023 Active clindamycin 300 mg oral capsule (4 sources) [...] 10 days. 20 capsule 02/26/2024 03/07/2024 Active codeine phosphate 2 mg/ml / guaiFENesin 20 mg/ml oral solution (3 sources) Opioid Agonist Start: 04-05-2024 End: 04-15-2024 take 10 mL by mouth four times daily as needed for cough guaiFENesin-codein e (Robitussin-AC) 100-10 MG/5ML syrup Indications: Acute cough Take 10 mL by mouth 4 (four) times a day as needed for cough for up to 10 days 400 mL 04/05/2024 04/15/2024 Active Start: 12-18-2023 End: 12-23-2023 take 10 mL by mouth every six hours as needed for cough and cough and cough guaiFENesin-codeine (Robitussin-AC) 100-10 MG/5ML syrup Indications: Acute cough Take 10 mL by mouth every 6 (six) hours if needed for cough for up to 5 days 240 mL 12/18/2023 12/23/2023 Active estrogens, conjugated (retirement) 0.9 mg oral tablet (14 sources) Estrogen Start: 05-11-2024 take 1 tablet by mouth once daily Premarin 0.9 MG tablet Indications: Vaginal dryness TAKE 1 TABLET BY MOUTH ONCE DAILY AT THE SAME TIME EACH DAY. 30 tablet 05/11/2024 Active Start: 04-23-2023 End: 04-22-2024 take 1 tablet by mouth once daily estrogens, conjugated, (Premarin) 0.9 MG tablet Indications: Vaginal dryness Take 1 tablet (0.9 mg) by mouth 1 (one) time each day at the same time 30 tablet 04/23/2023 04/22/2024 Active fluconazole 150 mg oral tablet (10 sources) Azole Antifungal Start: 02-26-2024 take 1 tablet by mouth once fluconazole (Diflucan) 150 MG tablet Indications: Mass of left breast, unspecified quadrant , Disorder of breast, unspecified Take 1 tablet (150 mg) by mouth every 3rd (third) day Repeat in 3 days if symptoms persist. 2 tablet 02/26/2024 Active levothyroxine sodium 0.025 mg oral tablet (14 sources) l-Thyroxine Start: 02-09-2024 take 1 tablet by mouth once daily levothyroxine (Synthroid, Levoxyl) 25 MCG tablet Indications: Acquired hypothyroidism (CMS/HCC) TAKE 1 TABLET BY MOUTH ONCE DAILY AT THE SAME TIME EACH DAY 100 tablet 2 02/09/2024 Active Start: 11-13-2023 take 1 tablet by [facility] once daily levothyroxine (Synthroid, Levoxyl) 25 MCG tablet Indications: Acquired hypothyroidism (CMS/HCC) TAKE 1 TABLET BY MOUTH ONCE DAILY AT THE SAME TIME EACH DAY 30 tablet 2 11/13/2023 Active lisinopril 10 mg oral tablet (14 sources) Angiotensin Converting Enzyme Inhibitor Start: 05-26-2023 take 1 tablet by mouth in the morning lisinopril 10 MG tablet Indications: Essential hypertension (CMS/HCC) Take 1 tablet (10 mg) by mouth in the morning. 100 tablet 2 05/26/2023 Active Completed/Discontinued Medications Medication Drug Class(es) Dates Sig (Normalized) Sig (Original) dexamethasone 0.001 mg/mg / neomycin 0.0035 mg/mg / polymyxin b 10 unt/mg ophthalmic ointment (3 sources) Aminoglycoside Antibacterial, Polymyxin-class Antibacterial, Corticosteroid Start: 11-20-2023 End: 12-18-2023 neomycin-polymyxin -dexAMETHasone (Polydex) 3.5-92293-0.1 ointment ophthalmic ointment APPLY 1/2 INCH INTO LEFT EYE EVERY NIGHT AT BEDTIME 11/20/2023 12/18/2023 Discontinued (Therapy completed) Problems Active Problems Problem Classification Problem Date Documented Da te Episodic/Chronic Acute cerebrovascular disease (1 source) Acute cerebrovascular disease Onset: 4 Asthma (14 sources) Asthma; Translations: [Unspecified asthma, uncomplicated] Onset: 3 10-25-2022 Chronic Complications of surgical procedures or medical care (14 sources) Postablative ovarian failure; Translations: [Asymptomatic postprocedural ovarian failure] Onset: 3 10-25-2022 Chronic Disorders of lipid metabolism (16 sources) Mixed hyperlipidemia; Translations: [Mixed hyperlipidemia] Onset: 3 12-17-2022 Chronic Esophageal disorders (14 sources) Laryngopharyngeal reflux; Translations: [Gastro-esophageal reflux disease without esophagitis] Onset: 3 10-25-2022 Chronic Essential hypertension (16 sources) Essential hypertension; Translations: [Essential (primary) hypertension] Onset: 3 10-25-2022 Chronic Malaise and fatigue (2 sources) Fatigue; Translations: [Other fatigue] 12-18-2023 Episodic Menopausal disorders (14 sources) Disorder associated with menstruation AND/OR menopause; Translations: [Menopausal and female climacteric states] Onset: 4 08-29-2023 Chronic Nonmalignant breast conditions (12 sources) Fibrocystic disease of breast; Translations: [Diffuse cystic mastopathy of unspecified breast] Onset: 4 02-26-2024 Chronic Nonmalignant breast conditions (6 sources) Lump in left breast; Translations: [Unspecified lump in the left breast, unspecified quadrant] 02-26-2024 Episodic Other circulatory disease (14 sources) Raynaud's phenomenon; Translations: [Raynaud's syndrome without gangrene] Onset: 3 10-25-2022 Chronic Other gastrointestinal disorders (2 sources) Dysphagia; Translations: [Dysphagia, unspecified] 03-03-2024 Episodic Other lower respiratory disease (2 sources) Cough; Translations: [Acute cough] 12-18-2023 Episodic Other lower respiratory disease (1 source) Cough; Translations: [Acute cough] 04-04-2024 Episodic Other nervous system disorders (2 sources) Dasilva's palsy; 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] 03-03-2024 Episodic Other nutritional; endocrine; and metabolic disorders (2 sources) Weight gain; Translations: [Abnormal weight gain] 12-18-2023 Episodic Other screening for suspected conditions (not mental disorders or infectious disease) (14 sources) Plain X-ray result abnormal; Translations: [Abnormal findings on diagnostic imaging of other specified body structures] Onset: 3 10-25-2022 Chronic Other screening for suspected conditions (not mental disorders or infectious disease) (4 sources) Encounter for screening mammogram for malignant neoplasm of breast; Translations: [ENC SCR MAMMO MALIG NEOPLASM BREAST] Onset: 3 Episodic Other upper respiratory infections (2 sources) Acute pansinusitis; Translations: [Acute pansinusitis, unspecified] 12-18-2023 Episodic Residual codes; unclassified (1 source) Family [...] Da te Episodic/Chronic Deficiency and other anemia (14 sources) Anemia; Translations: [Anemia, unspecified] Onset: 10-25-2022 10-25-2022 Episodic Other gastrointestinal disorders (4 sources) Dysphagia, unspecified; Translations: [DYSPHAGIA UNSPECIFIED] Onset: 08-04-2021 Episodic Other gastrointestinal disorders (14 sources) Slow transit constipation; Translations: [Slow transit constipation] Onset: 10-25-2022 10-25-2022 Episodic Other nutritional; endocrine; and metabolic disorders (14 sources) Underweight; Translations: [Underweight] Onset: 10-25-2022 10-25-2022 Episodic Other skin disorders (1 source) Localized swelling, mass and lump, neck; Translations: [LOCALIZED SWELLING MASS AND LUMP NECK] Onset: 08-08-2021 Episodic Other upper respiratory disease (14 sources) Feeling of lump in throat; Translations: [Globus sensation] Onset: 10-25-2022 10-25-2022 Episodic Results Test Name Value Interpretation Reference Range Facility MG MAMM SCREEN 3D FINN CADon 04-09-2022 MG MAMM SCREEN 3D FINN CAD Patient: DELVIS VALDEZ Exam Date: 04/09/2022 : 1960 Gender:F Ordering : DR JADON VELA . Admission #: [id number] Family : Order #: [id number] CLICK HERE TO VIEW EXAM RADIOLOGY REPORT [...] lung cancer at age 58. LOCATION: [facility] BREAST COMPOSITION: Heterogeneously dense,which may obscure [...] M.D. on 04/11/2022 at 08:08 Normal [facility] US THYROIDon 04-04-2022 US THYROID EXAMINATION: [...] follow-up required Diffuse thyroid atrophy TI-RADS: [employer] TI-RADS committee's white paper recommendations for thyroid lesions classified as TR3 (mildly suspicious) are listed below: > 1.5 cm. Follow-up ultrasound in 1, 3, and 5 years. > 2.5 cm. FNA. J. Am Donte Radiol 2017;14:587-595. Electronically authenticated by: ANABELLA MATHIS Date: 2022-04-04 16:39 Normal [facility] TSHon 09-21-2021 TSH 1.478 uIU/mL Normal 0.358-3.740 [facility] Comment on above: Performed By: #### T #### [facility] [address] [place] [address] Dr. Kiara Miles TSHon 08-08-2021 TSH 5.390 uIU/mL High 0.400-4.500 [facility] [employer] Comment on above: Performed By: #### T #### [facility] [address] [place], [place] [id number] US THYROIDon 08-06-2021 US THYROID EXAMINATION: US [...] 7 mm left thyroid nodule TI-RADS: [employer] TI-RADS committee's white paper recommendations for thyroid lesions classified as TR3 (mildly suspicious) are listed below: > 1.5 cm. Follow-up ultrasound in 1, 3, and 5 years. > 2.5 cm. FNA. J. [employer] Donte Radiol 2017;14:587-595. Electronically authenticated by: ANABELLA MATHIS Date: 2021-08-06 07:05 Normal [facility] ED Provider Noteon 7 HIM IP Note OR Director Of Professional Services Normal [facility] Otolaryngology Consultationo n 10-29-2016 Otolaryngology [...] Rate: 92 bpmAssessment/Plan 1. Uvular swelling Ordered: 23073 AMB Laryngoscopy diagnostic 51542 AMB Office OP Visit [facility] 2. Dysphasia Ordered: [id number] AMB Laryngoscopy diagnostic 92921 AMB Office OP Visit [facility] 3. Chronic GERD 4. [...] Mary fry MD 10/29/16 13:51 EDT Normal [facility] Vital Signs Date Time Vital Sign Value Performing Clinician Nathaniel bonilla 05-19-2024 08:41-0500 Body height 167.6 cm Digna Graham MD Work Phone: [facility] 05-19-2024 08:41-0500 Body mass index (BMI) [Ratio] 23.24 kg/m2 Digna Graham MD Work Phone: [facility] 05-19-2024 08:41-0500 Body weight 65.32 kg Digna Graham MD Work Phone: [facility] 05-19-2024 08:41-0500 Diastolic blood pressure 76 mm[Hg] Digna Graham MD Work Phone: [facility] 05-19-2024 08:41-0500 Heart rate 77 /min Digna Graham MD Work Phone: [facility] 05-19-2024 08:41-0500 Systolic blood pressure 146 mm[Hg] Digna Graham MD Work Phone: [facility] 03-03-2024 10:19-0500 Body height 167.6 cm Jocy Sanders PAN PULLER Work Phone: [facility] 03-03-2024 10:19-0500 Body mass index (BMI) [Ratio] 23.4 kg/m2 Jocy Sanders PAN PULLER Work Phone: [facility] 03-03-2024 10:19-0500 Body weight 65.77 kg Jocy Sanders PAN PULLER Work Phone: [facility] 03-03-2024 10:19-0500 Diastolic blood pressure 72 mm[Hg] Jocy Sanders PAN PULLER Work Phone: [facility] 03-03-2024 10:19-0500 Heart rate 88 /min Jocy Sanders PAN PULLER Work Phone: [facility] 03-03-2024 10:19-0500 SaO2% (BldA) [Mass fraction] 96 % Jocy Sanders PAN PULLER Work Phone: [facility] 03-03-2024 10:19-0500 Systolic blood pressure 112 mm[Hg] Jocy Sanders PAN PULLER Work Phone: [facility] 02-26-2024 11:22-0500 Body mass index (BMI) [Ratio] 23.26 kg/m2 Nayana RIGGINS Work Phone: [facility] 02-26-2024 11:22-0500 Body weight 65.37 kg Nayana RIGGINS Work Phone: [facility] 02-26-2024 11:22-0500 Diastolic blood pressure 70 mm[Hg] Nayana RIGGINS Work Phone: [facility] 02-26-2024 11:22-0500 Systolic blood pressure 114 mm[Hg] Nayana Lawson PA Work Phone: [facility] 12-18-2023 16:13-0400 Body height 167.6 cm Jocy Sanders PAN PULLER Work Phone: [facility] 12-18-2023 16:13-0400 Body mass index (BMI) [Ratio] 24.53 kg/m2 Jocy Sanders PAN PULLER Work Phone: [facility] 12-18-2023 16:13-0400 Body temperature 99.7 [degF] Jocy Sanders PAN PULLER Work Phone: [facility] 12-18-2023 16:13-0400 Body weight 68.95 kg Jocy Sanders PAN PULLER Work Phone: [facility] 12-18-2023 16:13-0400 Diastolic blood pressure 88 mm[Hg] Jocy Sanders PAN PULLER Work Phone: [facility] 12-18-2023 16:13-0400 Heart rate 97 /min Jocy Sanders PAN PULLER Work Phone: [facility] 12-18-2023 16:13-0400 SaO2% (BldA) [Mass fraction] 99 % Jocy Sanders PAN PULLER Work Phone: [facility] 12-18-2023 16:13-0400 Systolic blood pressure 138 mm[Hg] Jocy Sanders PAN PULLER Work Phone: [facility] Healthcare Encounters Encounter Date Encounter Type Care Provider Facility Start: 06-02-2024 End: 06-02-2024 Bamboo flowsheet Fili Paul DO Work Phone: [facility] Start: 06-02-2024 End: 06-02-2024 Bamboo flowsheet Fili Paul DO Work Phone: [facility] Start: 05-19-2024 End: 05-19-2024 Bamboo flowsheet Digna Graham MD Work Phone: [facility] Start: 05-19-2024 End: 05-19-2024 Bamboo flowsheet Digna Graham MD Work Phone: [facility] Start: 05-19-2024 End: 05-19-2024 ambulatory DIGNA GRAHAM Not Available Start: 05-19-2024 End: 05-19-2024 Office outpatient visit 15 minutes Digna Graham MD Work Phone: [facility] Comment on above: Nontoxic multinodula r goiter (CMS/HCC) (Primary Dx) Start: 04-04-2024 End: 04-05-2024 Refill Jocy Sanders PAN PULLER Work Phone: [facility] Comment on above: Acute cough Start: 03-09-2024 End: 03-09-2024 Telephone encounter Nayana RIGGINS Work Phone: [facility] Start: 03-03-2024 End: 03-03-2024 ambulatory JOCY SANDERS Not Available Start: 03-03-2024 End: 03-03-2024 Office outpatient visit 25 minutes Jocy Sanders PAN PULLER Work Phone: [facility] Comment on above: Dysphagia, unspecifi ed type (Primary Dx); Thyroid nodule (CMS/HCC); Dasilva's palsy Start: 02-26-2024 End: 02-26-2024 Bamboo flowsheet Nayana RIGGINS Work Phone: [facility] Start: 02-26-2024 End: 02-26-2024 Bamboo flowsheet Nayana RIGGINS Work Phone: [facility] Start: 02-26-2024 End: 02-26-2024 ambulatory NAYANA LAWSON Not Available Start: 02-26-2024 End: 02-26-2024 Office outpatient visit 15 minutes Naayna RIGGINS Work Phone: [facility] Comment on above: Mass of left breast, unspecified quadrant; Fibrocystic breast disease (FCBD), unspecified laterality; Dense breasts, unspecified; Disorder of breast, unspecified Start: 02-26-2024 ambulatory [facility] Start: 02-24-2024 ambulatory [facility] Start: 02-24-2024 End: 02-27-2024 Emergency department patient visit [facility] Start: 12-18-2023 End: 12-18-2023 ambulatory JOCY SANDERS Not Available Start: 12-18-2023 End: 12-18-2023 Office outpatient visit 25 minutes Jocy Sanders PAN PULLER Work Phone: [facility] Comment on above: Mixed hyperlipidemia (CMS/HCC) (Primary Dx); Essential hypertension (CMS/HCC); Acquired hypothyroidism (CMS/HCC); Thyroid nodule (CMS/HCC); Weight gain; Other fatigue; Acute cough; Acute non-recurrent pansinusitis Start: 12-18-2023 End: 12-18-2023 Bamboo flowsheet Jocy Sanders PAN PULLER Work Phone: [facility] Start: 12-18-2023 End: 12-18-2023 Bamboo flowsheet Jocy Sanders PAN PULLER Work Phone: [facility] Start: 06-04-2023 End: 06-04-2023 ambulatory DIGNA GRAHAM Not Available Start: 04-23-2022 End: 04-23-[address] JADON VELA Facility:[facility] Start: 04-09-2022 End: 04-10-[address] JADON VELA Facility:[facility] Start: 04-04-2022 End: 04-05-[address] DIGNA GRAHAM Facility:[facility] Start: 09-21-2021 End: 09-22-[address] DIGNA GRAHAM Facility:[facility] Start: 08-04-2021 End: 08-05-2021 ambulatory JOCY SANDERS Facility:[facility] Start: 11-24-2016 End: 11-24-2016 Emergency department patient visit [facility] Start: 10-29-2016 End: 10-30-2016 Ambulatory MARY CELESTE Facility[facility] Procedures Date Procedure Procedure Detail Performing Clinician Start: 03-09-2024 Mammography Fili huynh DO Work Phone: Start: 05-22-2023 Mammography Jocy torres PAN PULLER Work Phone: Start: 04-23-2023 Microscopic observat ion [Identifier] in Cervix by Cyto stain Digna Graham MD Work Phone: Plan of Treatment Date Care Activity Detail Author Start: 04-23-2026 Screening for malign ant neoplasm of cervix [facility] Healthcare Start: 11-12-2025 Screening for malign ant neoplasm of colon [facility] Start: 03-09-2025 Screening for malign ant neoplasm of breast Mammogram [facility] Start: 03-06-2025 Screening for malign ant neoplasm of cervix [facility] Start: 06-02-2024 End: 06-02-2024 Patient encounter procedure 06/02/2024 2:00 PM EST Office Visit [facility] [address] [place] [id number] Fili Crisostomo, DO [address] [place] [address] [facility] Start: 05-22-2024 Screening for malign ant neoplasm of breast Mammogram [facility] Start: 04-28-2024 End: 04-28-2024 Patient encounter procedure 04/28/2024 3:00 PM EST Office Visit [facility] [address] [id number] Fili Crisostomo, DO [address] [place], [place] [id number] [facility] Start: 03-03-2024 End: 03-03-2025 US Thyroid gland US thyroid Imaging Routine Dysphagia, unspecified type Thyroid nodule (CMS/HCC) Expected: 03/03/2024, Expires: 03/03/2025 [facility] Work Phone: Comment on above: Expected: 03/03/2024 , Expires: 03/03/2025 Start: 03-03-2024 End: 03-03-2024 Patient encounter procedure 03/03/2024 10:00 AM EST Office Visit [facility] [address] [facility] [address] [place] [id number] Jocy Sanders, PAN PULLER [address] [facility] [address] [place] [address] [facility] Start: 02-26-2024 End: 04-27-2025 US Breast - left Left breast US complete Imaging Routine Mass of left breast, unspecified quadrant Fibrocystic breast disease (FCBD), unspecified laterality Dense breasts, unspecified Disorder of breast, unspecified Expected: 02/26/2024 (Approximate), Expires: 04/27/2025 [facility] Work Phone: Comment on above: Expected: 02/26/2024 (Approximate), Expires: 04/27/2025 Start: 12-18-2023 End: 12-17-2024 CBC panel - Blood by Automated count CBC Lab Routine Essential hypertension (CMS/HCC) Expected: 12/18/2023 (Approximate), Expires: 12/17/2024 [facility] Comment on above: Expected: 12/18/2023 (Approximate), Expires: 12/17/2024 Start: 12-18-2023 End: 12-17-2024 Comprehensive metabolic 2000 panel - Serum or Plasma Comprehensive metabolic panel Lab Routine Essential hypertension (CMS/HCC) Expected: 12/18/2023 (Approximate), Expires: 12/17/2024 [facility] Comment on above: Expected: 12/18/2023 (Approximate), Expires: 12/17/2024 Start: 12-18-2023 End: 12-17-2024 Lipid 1996 panel - Serum or Plasma Lipid panel Lab Routine Mixed hyperlipidemia (CMS/HCC) Expected: 12/18/2023 (Approximate), Expires: 12/17/2024 [facility] Comment on above: Expected: 12/18/2023 (Approximate), Expires: 12/17/2024 Start: 12-18-2023 End: 12-17-2024 Thyrotropin [Units/volume] in Serum or Plasma TSH Lab Routine Acquired hypothyroidism (CMS/HCC) Thyroid nodule (CMS/HCC) Expected: 12/18/2023 (Approximate), Expires: 12/17/2024 [facility] Work Phone: Comment on above: Expected: 12/18/2023 (Approximate), Expires: 12/17/2024 Start: 12-18-2023 End: 12-17-2024 US Thyroid gland US thyroid Imaging Routine Thyroid nodule (CMS/HCC) Weight gain Other fatigue Expected: 12/18/2023, Expires: 12/17/2024 [facility] Comment on above: Expected: 12/18/2023 , Expires: 12/17/2024 Start: 12-07-2023 Influenza vaccination Influenza Vacc ine (#1) [facility] Start: 09-15-1979 Screening for malign ant neoplasm of cervix Pap Smear [facility] Start: 1964 Pneumococcal Vaccine : 65+ Years (1 of 2 - PCV) Pneumococcal Vaccine: 65+ Years (1 of 2 - PCV) [facility] Start: 1960 Screening for malign ant neoplasm of colon [facility] Payers Date Payer Category Payer Private Health Insurance [id number] 1959 Unknown [id number] 1959 Unknown [id number] 1960 Unknown [id number] 2.16.84 [id number] 1960 Unknown [id number] 2.16.84 0.1.929587.3.579.2.593 1960 Unknown [id number] 2.16.84 0.1.123830.3.579.2.593 1960 Unknown [id number] 2.16.84 0.1.821302.3.579.2.593 1960 Unknown [id number] 2.16.84 0.1.613222.3.579.2.593 1958 Unknown [id number] 2.16.8 40.1.710648.3.579.2.1286 1958 Unknown [id number] 2.16.8 40.1.451262.3.579.2.1286 1958 Unknown [id number] 2.16.8 40.1.761831.3.579.2.1286 1958 Unknown [id number] 2.16.8 40.1.669588.3.579.2.1286 1958 Unknown [id number] 2.16.8 40.1.027540.3.579.2.1286 1958 Unknown [id number] 2.16.84 0.1.741829.3.579.2.1259 1958 Unknown [id number] 2.16.84 0.1.895566.3.579.2.1258 1958 Unknown [id number] 2.16.84 0.1.256762.3.579.2.1258 1958 Unknown [id number] 2.16.84 0.1.056525.3.579.2.1258 1960 Unknown [id number] 2.16.84 0.1.697833.3.579.2.1259 04-07-1799 Unknown Social History Date Type Detail Facility Start: 10-25-2022 Tobacco smoking stat [facility] Never smoked tobacco [facility] Start: 10-25-2022 Tobacco use and exposure Smokeless t obacco non-user [facility] Start: 12-18-2023 End: 05-19-2024 Alcoholic beverage intake Lifetime non-drinker (finding) [facility] Start: 12-18-2023 End: 05-19-2024 History of Social function [facility] Start: 12-18-2023 End: 05-19-2024 [id number] Health Literacy [facility] How often [...] 1-2 cups per day coffee / tea [facility] Start: 1960 Sex assigned at Female [facility] Start: 04-16-2023 Gender identity Identifies as female gender (finding) [facility] Behavioral [facility] Clinical Notes 12-18-2023 to 05-19-2024 Digna Graham MD - 05/19/2024 8:30 AM ESTTelephone Encounter - GILSON Valentin - 03/09/2024 3:07 PM ESTTelephone Encounter - GILSON Valentin - 03/09/2024 3:07 PM EST Note Date & Type Note Facility 05-19-2024 History of Presen t illness Narrative Subjective Patient ID: Delvis Valdez is a 63 y.o. female who presents for Thyroid Nodule Thyroid US shows a 5mm nodule. No sig change compared to 05/2023 Family History Problem Relation Name Age of Onset Hypertension Mother Yana Hyperlipidemia Mother Yana Cancer Mother Yana COPD Mother Yana Heart disease Father Dias Heart disease Maternal Grandmother Elizabeth Hypertension Maternal Grandmother Elizabeth Diabetes Paternal Grandmother Active Ambulatory Problems Diagnosis Date Noted Abnormal x-ray 10/25/2022 Acquired hypothyroidism (CMS/HCC) 10/25/2022 Anemia 10/25/2022 Asthma (CMS/HCC) 10/25/2022 Essential hypertension (CMS/HCC) 10/25/2022 Globus sensation 10/25/2022 LPRD (laryngopharyngeal reflux disease) 10/25/2022 Postablative ovarian failure 10/25/2022 Raynaud's phenomenon 10/25/2022 Slow transit constipation 10/25/2022 Thyroid nodule (CMS/HCC) 10/25/2022 Underweight 10/25/2022 Mixed hyperlipidemia (CMS/HCC) 12/17/2022 Post menopausal syndrome 08/29/2023 Fibrocystic breast disease (FCBD) 02/26/2024 Resolved Ambulatory Problems Diagnosis Date Noted No Resolved Ambulatory Problems Past Medical History: Diagnosis Date At standard risk for fall BMI 24.0-24.9, adult Breast cancer screening Depression screening Difficulty swallowing Encounter for gynecological examination (general) (routine) without abnormal findings HTN (hypertension) (CMS/HCC) Lump in throat Lung nodule 2019 Miscarriage Osteoporosis screening Sinusitis Surgical menopause, symptomatic Past Surgical History: Procedure Laterality Date APPENDECTOMY 1973 BRONCHOSCOPY HYSTERECTOMY 1997 LASER LAPAROSCOPY X2 LASIK 2000 NASAL SEPTUM SURGERY [address] dr rodriguez [place] TONSILLECTOMY & ADENOIDECTOMY <AGE 10 1963 SHOULDER SURGERY 2004 left shoulder mass removed, SINUS SURGERY VAGINAL DELIVERY WRIST SURGERY 2019 dr phillips excision mass right wrist Allergies Allergen Reactions Cephalexin Other Reaction(s): Unknown Sulfamethoxazole-Trimethoprim Other Reaction(s): Unknown Wound Dressing Adhesive Rash Current Outpatient Medications on File Prior to Visit Medication Sig Dispense Refill fluconazole (Diflucan) 150 MG tablet Take 1 [...] mouth in the morning. 100 tablet 2 Premarin 0.9 MG tablet TAKE 1 TABLET BY MOUTH ONCE DAILY AT THE SAME TIME EACH DAY. 30 tablet 0 No current facility-administered medications on file prior to visit. Objective Last Recorded Vitals Vitals: 05/19/24 0841 BP: 146/76 Pulse: 77 ENT Physical Exam Constitutional Appearance: patient appears well-developed, well-nourished and well-groomed, Communication/Voice: communication appropriate for developmental age; vocal quality normal; Assessment/Plan Diagnoses and all orders for this visit: Nontoxic multinodular goiter (CMS/HCC) Stable MNG. Repeat US one year documented in this encounter [facility] 03-09-2024 Telephone encount er Note Called and spoke with patient regarding US results. Symptoms and breast pain improving since antibiotics. Will order repeat US in months [facility] 03-09-2024 Miscellaneous Notes Formattin g of this note might be different from the original. Called and spoke with patient regarding US results. Symptoms and breast pain improving since antibiotics. Will order repeat US in months documented in this encounter [facility] 03-03-2024 History of Presen t illness Narrative Images from the original note were not included. HPI ER Follow-up Additional comments: [facility] 02/23 for cheek and face numbness Last edited by Donna Lr MA on 03/03/2024 7:53 AM. Subjective Patient ID: Delvis Valdez is a 63 y.o. female who presents for ER Follow-up ([facility] 02/23 for cheek and face numbness ). Pt went to ER at [facility] on 02/23 due to face and cheek [...] reflux disease) Lump in throat Lung nodule 2019 8mm right lower Miscarriage x1 Osteoporosis screening Post menopausal syndrome x2 Sinusitis Surgical menopause, symptomatic Thyroid nodule (CMS/HCC) Underweight Past Surgical History: Procedure Laterality Date APPENDECTOMY 1973 BRONCHOSCOPY HYSTERECTOMY 1996 LASER LAPAROSCOPY X2 LASIK 2000 NASAL SEPTUM SURGERY [address] dr [place]iguez [place] TONSILLECTOMY & ADENOIDECTOMY <AGE 10 1963 SHOULDER SURGERY 2004 left shoulder mass removed, SINUS SURGERY VAGINAL DELIVERY WRIST SURGERY 2019 dr phillips excision mass right wrist Visit Vitals Smoking Status Never Review of Systems Constitutional: Positive for appetite change. HENT: Negative. Eyes: Negative. Respiratory: Negative. Cardiovascular: Negative. Gastrointestinal: Negative. Genitourinary: Negative. Musculoskeletal: Negative. Skin: Negative. Neurological: [place] Palsy dx from ER Psychiatric/Behavioral: Negative. Objective [...] follow-ups on file. documented in this encounter [facility] 02-26-2024 History of Presen t illness Narrative [...] nodule (CMS/HCC) 10/25/2022 Underweight 10/25/2022 Mixed hyperlipidemia (CMS/HCC) 12/17/2022 Post menopausal syndrome 08/29/2023 Resolved Ambulatory Problems Diagnosis Date Noted No Resolved Ambulatory Problems Past Medical History: Diagnosis Date At standard risk for fall BMI 24.0-24.9, adult Breast cancer screening Depression screening Difficulty swallowing Encounter for gynecological examination (general) (routine) without abnormal findings HTN (hypertension) (CMS/HCC) Lump in throat Lung nodule 2019 Miscarriage Osteoporosis screening Sinusitis Surgical menopause, symptomatic [...] 2000 NASAL SEPTUM SURGERY [address] dr jennifer [place] TONSILLECTOMY & ADENOIDECTOMY <AGE 10 1963 SHOULDER SURGERY 2004 left shoulder mass removed, SINUS SURGERY VAGINAL DELIVERY WRIST SURGERY 2019 dr phillips excision mass right wrist REVIEW [...] nursing note reviewed. Exam conducted with a paper gluing operator present. Vitals: Estimated body mass index is [...] of: GILSON Valentin documented in this encounter [facility] 12-18-2023 History of Presen t illness Narrative Images from the original note were not included. Subjective Patient ID: Delvis Valdez is a 63 y.o. female who presents for URI. Pt stated this started on Friday , pt does have green phlegm , not sleeping , coughing , sore throat but not anymore, sinus pressure, right ear pain Pt was taking old cough medication that did help her some , she no longer has any URI This is a new problem. The current episode started in the past 7 days. The problem has been unchanged. There has been no fever. Associated symptoms include congestion, coughing, ear pain, sinus pain and a sore throat. Pertinent negatives include no headaches. The treatment provided no relief. Current Outpatient Medications on File Prior to Visit Medication Sig Dispense Refill [id number] (Polydex) 3.5-35043-6.1 ointment ophthalmic ointment APPLY 1/2 INCH INTO LEFT EYE EVERY NIGHT AT BEDTIME estrogens, conjugated, (Premarin) 0.9 MG tablet Take 1 tablet (0.9 mg) by mouth 1 (one) time each day at the same time 30 tablet 11 levothyroxine (Synthroid, Levoxyl) 25 MCG tablet TAKE 1 TABLET BY MOUTH ONCE DAILY AT THE SAME TIME EACH DAY 30 tablet 2 lisinopril 10 MG tablet Take [...] reflux disease) Lump in throat Lung nodule 2019 8mm right lower Miscarriage x1 Osteoporosis screening Post menopausal syndrome x2 Sinusitis Surgical menopause, symptomatic Thyroid nodule (CMS/HCC) Underweight Past Surgical History: Procedure Laterality Date APPENDECTOMY 1973 BRONCHOSCOPY HYSTERECTOMY 1997 LASER LAPAROSCOPY X2 LASIK 2000 NASAL SEPTUM SURGERY 1998 dr [place]iguez [place] TONSILLECTOMY & ADENOIDECTOMY <AGE 10 1963 SHOULDER SURGERY 2004 left shoulder mass removed, SINUS SURGERY VAGINAL DELIVERY WRIST SURGERY 2019 dr phillips excision mass right wrist Visit Vitals Smoking Status Never Review of Systems HENT: Positive for congestion, ear pain, sinus pain and sore throat. Respiratory: Positive for cough. Neurological: Negative for headaches. Objective Physical Exam Vitals reviewed. Constitutional: Appearance: Normal appearance. HENT: Head: Normocephalic. Right Ear: A middle ear effusion is present. Left Ear: A middle ear effusion is present. Nose: Congestion present. Mouth/Throat: Mouth: Mucous membranes are moist. Pharynx: Oropharynx is clear. Posterior oropharyngeal erythema present. Eyes: Conjunctiva/sclera: Conjunctivae normal. Cardiovascular: Rate and Rhythm: Normal rate. Pulmonary: Effort: Pulmonary effort is normal. Musculoskeletal: Cervical back: Neck supple. Lymphadenopathy: Cervical: No cervical adenopathy. Skin: General: Skin is warm and dry. Neurological: General: No focal deficit present. Mental Status: She is alert and oriented to person, place, and time. Psychiatric: Mood and Affect: Mood normal. Behavior: Behavior normal. Assessment/Plan Diagnoses and all orders for this visit: Mixed hyperlipidemia (CMS/HCC) - Lipid panel; Future Await lab Essential hypertension (CMS/HCC) - CBC; Future - Comprehensive metabolic panel; Future Patient's blood pressure is currently well controlled. Continue with current medications and I will continue to monitor. Goal BP remains less than 130/80. Acquired hypothyroidism (CMS/HCC) - TSH; Future Await lab. Pt is having increased difficulty swallowing so a thyroid ultrasound was ordered. Thyroid nodule (CMS/HCC) - TSH; Future - US thyroid; Future Pt is having increased difficulty swallowing so a thyroid ultrasound was ordered. Weight gain - US thyroid; Future Await ultrasound Other fatigue - US thyroid; Future Await ultrasound Acute cough - guaiFENesin-codeine (Robitussin-AC) 100-10 MG/5ML syrup; Take 10 mL by mouth every 6 (six) hours if needed for cough for up to 5 days You can use cough drops, cough syrups or warm teat to help soothe the throat. Acute non-recurrent pansinusitis - azithromycin (Zithromax) 250 MG tablet; Take 2 tablets (500 mg) by mouth Daily for 1 day, THEN 1 tablet (250 mg) Daily for 4 days. Start the above as directed. Reviewed potential s/e with patient. Encouraged probiotic while on antibiotic. Increase water intake, get plenty of rest. Can take OTC allergy medication for symptomatic relief. Tylenol/Motrin prn. Follow up if no improvement in one week. No follow-ups on file. documented in this encounter [facility] Evaluation note Diagnosis Mass of left breast, unspecified quadrant Fibrocystic breast disease (FCBD), unspecified laterality Dense breasts, unspecified Disorder of breast, unspecified [facility] Diagnosis Dysphagia, unspecified type- Primary Thyroid nodule (CMS/HCC) Nontoxic uninodular goiter Dasilva's palsy [facility] Diagnosis Mixed hyperlipidemia (CMS/HCC)- Primary Mixed hyperlipidemia Essential hypertension (CMS/HCC) Unspecified essential hypertension Acquired hypothyroidism (CMS/HCC) Unspecified hypothyroidism Thyroid nodule (CMS/HCC) Nontoxic uninodular goiter Weight gain Other symptoms concerning nutrition, metabolism, and development Other fatigue Acute cough Acute non-recurrent pansinusitis [facility] Diagnosis Acute cough [facility] Diagnosis Nontoxic multinodular goiter (CMS/HCC)- Primary Nontoxic multinodular goiter documented in this encounter [facility] Summary [...] section and content) DATE CREATED AUTHOR [facility]2017 [facility] DATE CREATED AUTHOR AUTHOR'S ORGANIZ ATION 10/01/2017 [facility] DATE CREATED AUTHOR AUTHOR'S ORGANIZ ATION 08/09/2021 [facility] dical Specialist DATE CREATED AUTHOR AUTHOR'S ORGANIZ ATION 04/24/2022 [facility] DATE CREATED AUTHOR AUTHOR'S ORGANIZ ATION 03/02/2024 [facility] DATE CREATED AUTHOR AUTHOR'S ORGANIZ ATION 05/21/2024 [facility] dical Specialists [employer] Care Teams (unrecognized sec tion and content) Director Of Professional Services Relationship Specialty Start Date End Date Erica Cm MD [address] [place] [address] PCP - General Family Medicine 10/29/22 Erica Cm MD [address] [place] [address] PCP - Medical [place] [employer] 09/01/10 04/06/99 Director Of Professional Services Relationship Specialty Start Date End Date Erica Cm MD [address] [place] [address] PCP - General Family Medicine 10/29/22 Erica Cm MD [address] [place] [address] PCP - Medical [place] [employer] 09/01/10 04/06/99 Director Of Professional Services Relationship Specialty Start Date End Date Erica Cm MD [address] [facility] [address] [place] [address] PCP - General Family Medicine 10/29/22 Erica Cm MD [address] [facility] [address] [place] [address] PCP - Medical [place] [employer] 09/01/10 04/06/99 Director Of Professional Services Relationship Specialty Start Date End Date Erica Cm MD [address] [place] [address] PCP - General Family Medicine 10/29/22 Erica Cm MD [address] [place] [address] PCP - Medical [place] [employer] 09/01/10 04/06/99 Director Of Professional Services Relationship Specialty Start Date End Date Erica Cm MD [address] [place] [address] PCP - General Family Medicine 10/29/22 Erica Cm MD [address] [place] [address] PCP - Medical [place] [employer] 09/01/10 04/06/99 Director Of Professional Services Relationship Specialty Start Date End Date Erica Cm MD [address] [place] [address] PCP - General Family Medicine 10/29/22 Erica Cm MD [address] [place] [address] PCP - Medical [place] [employer] 09/01/10 04/06/99 Director Of Professional Services Relationship Specialty Start Date End Date Erica Cm MD [address] [facility] [address] [place] [address] PCP - General Family Medicine 10/29/22 Erica Cm MD [address] [facility] [address] [place] [address] PCP - Medical [place] [employer] 09/01/10 04/06/99 Director Of Professional Services Relationship Specialty Start Date End Date Erica Cm MD [address] [place] [address] PCP - General Family Medicine 10/29/22 Erica Cm MD [address] [place] [address] PCP - Medical [place] [employer] 09/01/10 04/06/99 Director Of Professional Services Relationship Specialty Start Date End Date Erica Cm MD [address] [place] [address] PCP - General Family Medicine 10/29/22 Erica Cm MD [address] [place] [address] PCP - Medical [employer] [place] [employer] 09/01/10 04/06/99 Reason for Visit (unrecogniz ed section and content) Reason Comments left breast lump Reason Comments ER Follow-up [facility] 02/23 for cheek and face numbness Reason Comments URI Reason Comments Med Refill Reason Comments Thyroid Nodule FOR RECORDS PERTAINING TO PATIENTS WHO ARE [...] BE BASED ON THE PRIMARY CLINICAL RECORDS. [employer] provides no warranty or guarantee of the accuracy or completeness of information in this document.
[2024-06-08 11:09] LABS: Age Gdln ACOG Testing Note (.); HPV Aptima Negative (Negative); IGP, Aptima HPV, rfx 16/18,45 Note (.)
== END 2024-06-02 20:57 | disposition home or self-care (01) ==
LOC: LAB 20:56
PROVIDERS: PCP Family Medicine; Visit Provider Obstetrics & Gynecology
DX: Z01.419 Encounter for gynecological examination (general) (routine) without abnormal findings (principal)
CPT/HCPCS: 87624; 88175